=== PATIENT | male | born 1940 | race Caucasian/White ===

== ENCOUNTER 2020-02-18 11:50 | Inpatient (IN) | payer MEDICARE, OTHER, SELFPAY ==
[2014-10-09 16:25] VITALS: BMI 19.2
[2020-02-18 12:06] VITALS: PULSE 65; RESP 16; O2SAT 92; BMI 20.2
[2020-02-18 12:38] VITALS: BP 124/78; PULSE 65; RESP 16; TEMP 36.7; O2SAT 92
[2020-02-18 12:53] VITALS: BMI 20.2
--- NOTE | 2020-02-18 13:20 | HP.PCM_ITS ---
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 The patient is a 79 year old Male with below past medical history with followin02/14/2020 Fall, right sided weakness, speech changes. CTA showed left pericallosal artery stenosis/occlusion. tPA given. 02/15/2020 Admit to [facility] for post tPA monitoring. Post tPA protocol. PRN labetalol/hydralazine, maintain systolic blood pressure < 180. Order EKG, Echo, cardiac enzymes. Start Atorvastatin 80MG daily, hold aspirin for now. Sequential compression devices for DVT prophylaxis. MRI brain when able, TTE with agitated saline. 02/15/2020 Echo EF 61%. No Patent Foramen Ovale. 30 day satellite project site monitor on discharge to evaluate cardioembolic source. August 2018 Echo EF 45%. Hold Memantine 10MG twice daily for now. 02/15/2020 MRI brain showed acute left ALEX stroke, likely cardioembolic. 02/17/2020 Admit to TCU with debility, here for rehabilitation, strengthening, prior to discharge home with . Past Medical History Past Medical History (Chronic Problems): Chronic Problems Cardiomyopathy (Chronic) Atrial flutter (Chronic) Prostate cancer (Chronic) Alzheimer disease (Chronic) Asthma (Chronic) Glaucoma (Chronic) Squamous cell carcinoma skin of arm (Chronic) Bilateral inguinal hernia (Chronic) generalized arthritis (Chronic) Acid reflux (Chronic) History of malignant neoplasm of prostate (Chronic) Hyperlipidemia (Chronic) Dementia (Chronic) Atrial fibrillation (Chronic) Allergies amoxicillin [Amoxicillin] Adverse Reaction (Verified 04/24/14 10:40) Rash tetracycline [Tetracycline] Adverse Reaction (Verified 04/24/14 10:40) Rash Home Medications: Ambulatory Orders Medication Instructions Recorded Aspirin [Aspirin, Baby] 81 mg PO DAILY@0800 04/24/14 Bimatoprost [Lumigan Opthalmic] 1 drop EACH EYE QHS 04/24/14 Memantine Hydrochloride [Namenda] 10 mg PO DAILY 04/24/14 Multivitamins,Therapeutic 1 tablet PO DAILY 04/24/14 [Multivitamin] Ondansetron [Zofran Odt] 4 mg PO Q8H PRN PRN #10 tablet 04/24/14 Rivastigmine 9.5mg Patch [Exelon 1 patch TD Q24H 04/24/14 9.5MG/24HR PATCH] Atorvastatin Calcium [Lipitor] 20 mg PO QHS 02/18/20 Docusate Sodium [Docu Liquid] 100 mg PO BID 02/18/20 Enoxaparin Sodium [Lovenox] 40 mg SQ DAILY 02/18/20 Epinephrine [Epipen] 0.3 mg IM X1 02/18/20 Propranolol HCl [Inderal (Beta 20 mg PO BID 02/18/20 [place])] Propylene Glycol [Systane Complete] 1.5 ml OP DAILY 02/18/20 Surgical History: cataract - OS., herniorrhaphy - Bilateral inguinal., - - Mitral valve repair, Brachytherapy, right hand reconstruction. Psychiatric History: No pertinent psych hx Lives: Spouse/ Significant Other - . Smoking Status: Never smoker Tobacco Use: Non-smoker Alcohol: None Drugs: None - *Family History Paternal History Items: Cancer - Mulitple Myleoma. Maternal History Items: No pertinent history Review of Systems Constitutional: Denies: Chills, Fever, Weight Change HEENT: Denies: Head Aches, Sinus Congestion, Sinus Drainage Cardiovascular: Denies: Chest Pain, Palpitations Respiratory: Denies: Cough, Shortness of breath at rest, Sputum production Gastrointestinal: Denies: Abdominal Pain, Nausea, Vomiting Genitourinary: Denies: Dysuria Musculoskeletal: Denies: Joint Pain, Joint Tenderness Skin: Denies: Rash, Wounds Neurological: Denies: Numbness, Tingling, Focal weakness Psychiatric: Denies: Anxiety, Depression, Homicidal Ideations, Suicidal Ideations Hematologic/ Lymphatic: Denies: Easy Bruising, Easy Bleeding VTE Information - Inpt Only VTE Present on Admission: No VTE Mechan Device Prophylaxis: Knee High BLESSING Hose VTE Pharm Prophylaxis ordered?: Yes Patient Problems: Active and Suspected Problems Debility (Acute) Stroke (Acute) Right hemiparesis (Acute) Expressive aphasia (Acute) - Physical Exam Vitals/I&O's: Vital Signs Temp Pulse Resp BP Pulse Ox 98.1 F 65 16 124/78 H 92 02/18/20 12:38 02/18/20 12:38 02/18/20 12:38 02/18/20 12:38 02/18/20 12:38 Oxygen Delivery Method Room Air Body Mass Index (BMI) 19.2 Finger Stick Blood Glucose 101 General: Alert, Oriented x3, Cooperative HEENT: Atraumatic, PERRLA, EOMI, Normocephalic Neck: Supple, No JVD, Negative Carotid Bruits Lungs: Clear to auscultation, Normal air movement Cardiovascular: Regular rate, No murmurs Abdomen: Bowel Sounds Present, Soft, Non Tender Extremities: No edema, Capillary Refill Less than 3 Seconds Skin: No rashes, No breakdown Musculoskeletal: No Tenderness to Palpation of Joints or Extremities Neurological: Cranial nerves II-XII grossly intact, - - Right hemiparesis. Psych/Mental Status: Normal Affect, Appropriate Current Medications Aspirin (Aspirin, Baby) 81 mg PO DAILY@0800 [facility] Atorvastatin Calcium (Lipitor) 20 mg PO QHS MEGHA Docusate Sodium (Colace Syrup) 100 mg PO BID MEGHA Enoxaparin Sodium (Lovenox) 40 mg SC DAILY MEGHA Epinephrine HCl (Symjepi) 0.3 mg IM X1 PRN PRN Reason: Allergic reaction Latanoprost (Xalatan Opthalmic) 1 drop EACH EYE QHS [facility] Memantine (Namenda) 10 mg PO DAILY MEGHA Multivitamins/Minerals (Multivitamin With Minerals (Bkc)) 1 tablet PO DAILYCM [facility] Propranolol HCl (Inderal) 20 mg PO BID MEGHA Tuberculin PPD (Tubersol, Aplisol, Ppd) 5 tu ID X1 ONE Stop: 02/19/20 10:01 Tuberculin PPD (Tubersol, Aplisol, Ppd) 5 tu ID X1 ONE Stop: 02/26/20 10:01 Assessment/Plan All Active Problems Debility (Acute) Stroke (Acute) Right hemiparesis (Acute) Expressive aphasia (Acute) 79 year old male with below past medical history hospitalized for left ALEX stroke, status post tPA, admitted to TCU with debility, here for rehabilitation, strengthening, prior to discharge home with . * Debility - PT/OT. * Cognition/Expressive aphasia - ST. * Pain - Tylenol 1000MG Q6H PRN pain (1-10). * Bowel - Miralax 17GM daily, Senna/colace 1 tablet BID, Dulcolax 10MG daily PRN. * Adult immunization - Administer Prevnar 13, Pneumovax 23, Fluzone as appropriate. * DVT prophylaxis - Lovenox 40MG SC daily. * Stroke - Aspirin 81MG daily, order 30 day satellite project site monitor to evaluate cardioembolic stroke. * Hyperlipidemia - Atorvastatin 20MG QHS. * Allergic Reaction - Epinephrine 0.3MG IM x 1 PRN allergy. * Glaucoma - Latanoprost 0.005% 1GTT OU QHS. * Alzheimer Disease - Memantine 10MG daily. * Nutrition - MVI daily. * Dry eye - Artificial Tears 1GTT OU Q1H PRN. * Hypertension - Propranolol 20MG BID.
--- NOTE | 2020-02-18 15:23 | NURSING ---
Spoke with Meghan in Cardiovascular, she stated that no one was available to apply the manager monitoring and that it will be done on Friday.
--- NOTE | 2020-02-18 16:45 | CASEMGMT ---
Social Work Completed initial assessment with . Pt unable to respond to SW. reports pt has had Dementia for 10 years and she has been assisting home. States he cannot remember past about 30 seconds. Prior to admission, pt was physically capable. They have a 2 story home with 4 steps to enter and the walk-in shower is on the 2nd floor with his bedroom. Pt could complete those steps prior. is realistic that pt may not be able to return home, although that is the goal. stated she is the HCPOA. Emailed a list of [facility] SNFs for pt. Explained Medicare benefit. Confirmed code status as DNR-CCA. Scheduled care plan meeting. Assisted with speaking to pt via phone. Pt did not respond. Will continue to follow. REJI JaureguiW
[2020-02-18] MEDS: Senna/Docusate Sodium 1 Tablet PO (17:59)
[2020-02-18] MEDS: Propranolol 10 MG Tablet 20 MG PO (17:59)
[2020-02-18] MEDS: Menthol/Lanolin/Calamine/Znox 113 GM Tube 1 APPLIC TOPICAL (18:51)
[2020-02-18] MEDS: Atorvastatin Calcium 20 MG Tablet PO (22:08)
[2020-02-18] MEDS: Latanoprost 0.005% 1 Bottle 1 DRP EACH EYE (22:08)
[2020-02-19 07:22] LABS: Absolute Lymphocyte Count 2.03 X10^3/uL (0.83-4.51); Absolute Neutrophil Count 3.9 X10^3/uL (2.0-7.7); Basophil# 0.06 X10^3/uL; Basophil% 0.8 % (0-1); Eosinophil# 0.68 X10^3/uL; Eosinophils% 8.8 % (0-5); Hematocrit 45.3 % (40-54); Lymphocyte # 2.03 X10^3/ul (4.0); Lymphocyte % 26.4 % (19-41); Mean Corp Hgb Conc 33.1 g/dL (32-36); Mean Corpuscular Hgb 29.3 pg (27.0-32.0); Mean Corpuscular Volume 88.5 fL (80-94); Mean Platelet Vol. 10.9 fl (6.2-12.0); Monocyte# 0.99 X10^3/uL; Monocyte% 12.9 % (0-10); NRBC Flagged by Analyzer 0 % (0-5); Neutrophil % 50.6 % (47-70); Platelet Count 198 K/mm3 (150-450); RBC Distribution Width SD 45.4 fl (35.1-43.9); Red Blood Count 5.12 M/mm3 (4.6-6.2); White Blood Count 7.7 K/mm3 (4.4-11.0)
[2020-02-19] MEDS: Enoxaparin 40 MG/0.4 ML Syringe SC (07:23)
[2020-02-19] MEDS: Memantine Hydrochloride 10 MG Tablet PO (07:23)
[2020-02-19] MEDS: Senna/Docusate Sodium 1 Tablet PO ×2 (07:23→18:03)
[2020-02-19] MEDS: Propranolol 10 MG Tablet 20 MG PO ×2 (07:23→18:03)
[2020-02-19] MEDS: Polyethylene Glycol 3350 17 GM PACKET PO (07:23)
[2020-02-19] MEDS: Menthol/Lanolin/Calamine/Znox 113 GM Tube 1 APPLIC TOPICAL ×2 (07:24→18:02)
[2020-02-19 07:43] LABS: Anion Gap 4 (5-15); BUN 24 mg/dL (7-18); BUN/Creat Ratio 23.1 RATIO (10-20); Calcium,Total 9.1 mg/dL (8.5-10.1); Chloride 105 mmol/L (98-107); Creatinine, Serum 1.04 mg/dL (0.70-1.30); EST Glomerular Filtration Rate 73 mL/min (>60); Est Glom Filt Rate - Afr Amer 89 mL/min (>60); Estimated Creatinine Clearance 52.19 ml/min; Glucose 96 mg/dL (74-106); Potassium 4.4 mmol/L (3.5-5.1); Sodium Level 140 mmol/L (136-145)
[2020-02-19] MEDS: Multivitamins,Ther W-Minerals Tablet 1 TABLET PO (08:10)
[2020-02-19] MEDS: Aspirin 81 MG TAB.CHEW PO (08:10)
[2020-02-19] MEDS: Tuberculin,Purif.prot.deriv. 50 TU/ML Vial 5 ML ID (09:51)
[2020-02-19 14:12] VITALS: BP 111/66; PULSE 66; RESP 17; TEMP 36.7; O2SAT 94
[2020-02-19] MEDS: Latanoprost 0.005% 1 Bottle 1 DRP EACH EYE (20:50)
[2020-02-19] MEDS: Atorvastatin Calcium 20 MG Tablet PO (20:50)
[2020-02-20] MEDS: Polyethylene Glycol 3350 17 GM PACKET PO (06:58)
[2020-02-20] MEDS: Enoxaparin 40 MG/0.4 ML Syringe SC (07:01)
[2020-02-20] MEDS: Menthol/Lanolin/Calamine/Znox 113 GM Tube 1 APPLIC TOPICAL ×2 (07:01→17:55)
[2020-02-20] MEDS: Senna/Docusate Sodium 1 Tablet PO ×2 (07:02→17:56)
[2020-02-20] MEDS: Memantine Hydrochloride 10 MG Tablet PO (07:02)
--- NOTE | 2020-02-20 07:02 | NURSING ---
hold propranolol d/t low bp of 96/56. hr at 76. rn aware.
[2020-02-20] MEDS: Multivitamins,Ther W-Minerals Tablet 1 TABLET PO (08:20)
[2020-02-20] MEDS: Aspirin 81 MG TAB.CHEW PO (08:20)
[2020-02-20 10:50] VITALS: PULSE 74; RESP 18; O2SAT 98
[2020-02-20 14:14] VITALS: BP 90/66; PULSE 73; RESP 18; TEMP 36.8; O2SAT 98
[2020-02-20] MEDS: Propranolol 10 MG Tablet 20 MG PO (17:58)
[2020-02-20 18:07] VITALS: BP 106/73; PULSE 84
[2020-02-20] MEDS: Latanoprost 0.005% 1 Bottle 1 DRP EACH EYE (20:14)
[2020-02-20] MEDS: Atorvastatin Calcium 20 MG Tablet PO (20:14)
[2020-02-21] MEDS: Polyethylene Glycol 3350 17 GM PACKET PO (06:21)
[2020-02-21] MEDS: Senna/Docusate Sodium 1 Tablet PO ×2 (06:22→17:20)
[2020-02-21] MEDS: Memantine Hydrochloride 10 MG Tablet PO (06:22)
[2020-02-21] MEDS: Enoxaparin 40 MG/0.4 ML Syringe SC (06:22)
[2020-02-21] MEDS: Menthol/Lanolin/Calamine/Znox 113 GM Tube 1 APPLIC TOPICAL ×2 (06:22→17:21)
[2020-02-21] MEDS: Propranolol 10 MG Tablet 20 MG PO ×2 (06:25→17:20)
[2020-02-21] MEDS: Multivitamins,Ther W-Minerals Tablet 1 TABLET PO (07:51)
[2020-02-21] MEDS: Aspirin 81 MG TAB.CHEW PO (07:51)
--- NOTE | 2020-02-21 11:45 | PCM.PN.RX ---
<Amanuel Garcia - Last Filed: 02/21/20 11:45> Progress Note - Pharmacy Subjective: [] TCU Admission Objective: Allergies amoxicillin [Amoxicillin] Adverse Reaction (Verified 04/24/14 10:40) Rash tetracycline [Tetracycline] Adverse Reaction (Verified 04/24/14 10:40) Rash Current Medications Generic Name Dose Route Start Last Admin Trade Name Estrella PRN Reason Stop Dose Admin Acetaminophen 1,000 mg 02/18/20 14:02 Tylenol PO Q6H PRN Pain Score 1-10/10 Aspirin 81 mg 02/19/20 08:00 02/21/20 07:51 Aspirin, Baby PO 81 mg DAILY@0800 MEGHA Administration Atorvastatin Calcium 20 mg 02/18/20 22:00 02/20/20 20:14 Lipitor PO 20 mg QHS EMGHA Administration Bisacodyl 10 mg 02/18/20 14:03 Dulcolax PO DAILY PRN Constipation Calamine/Phenol 1 applic 02/18/20 18:00 02/21/20 06:22 Calmoseptine Ointment TOPICAL 1 applicatio BID MEGHA Administration Protocol Enoxaparin Sodium 40 mg 02/19/20 06:00 02/21/20 06:22 Lovenox SC 40 mg DAILY MEGHA Administration Epinephrine HCl 0.3 mg 02/18/20 12:12 Symjepi IM X1 PRN Allergic reaction Latanoprost 1 drop 02/18/20 22:00 02/20/20 20:14 Xalatan Opthalmic EACH EYE 1 drop QHS [facility] Administration Memantine 10 mg 02/19/20 06:00 02/21/20 06:22 Namenda PO 10 mg DAILY MEGHA Administration Multivitamins/Minerals 1 tablet 02/19/20 08:00 02/21/20 07:51 Multivitamin With Minerals (Bkc) PO 1 tablet DAILYCM MEG[facility] Administration Polyethylene Glycol 17 gm 02/19/20 06:00 02/21/20 06:21 Miralax PO 17 gm DAILY MEGHA Administration Propranolol HCl 20 mg 02/18/20 18:00 02/21/20 06:25 Inderal PO 20 mg BID MEGHA Administration Senna/Docusate Sodium 1 tablet 02/18/20 18:00 02/21/20 06:22 Senokot-S, Liliane-Colace PO 1 tablet BID MEGHA Administration Tuberculin PPD 5 tu 02/26/20 10:00 Tubersol, Aplisol, Ppd ID 02/26/20 10:01 X1 ONE Problem List Debility (Acute) Stroke (Acute) Right hemiparesis (Acute) Expressive aphasia (Acute) Cardiomyopathy (Chronic) Atrial flutter (Chronic) Prostate cancer (Chronic) Alzheimer disease (Chronic) Asthma (Chronic) Glaucoma (Chronic) Squamous cell carcinoma skin of arm (Chronic) Bilateral inguinal hernia (Chronic) Vital Signs Temp Pulse Resp BP Pulse Ox 98.2 F 84 18 106/73 98 02/20/20 14:14 02/20/20 18:07 02/20/20 14:14 02/20/20 18:07 02/20/20 14:14 Oxygen Delivery Method Room Air Weight: 64.07 kg Body Mass Index (BMI) 20.2 Finger Stick Blood Glucose 101 Sodium 140 mmol/L (136-145) 02/19/20 07:11 Potassium 4.4 mmol/L (3.5-5.1) 02/19/20 07:11 Chloride 105 mmol/L (98-107) 02/19/20 07:11 Carbon Dioxide 31.0 mmol/L (21.0-32.0) 02/19/20 07:11 Anion Gap 4 (5-15) L 02/19/20 07:11 BUN 24 mg/dL (7-18) H 02/19/20 07:11 Creatinine 1.04 mg/dL (0.70-1.30) 02/19/20 07:11 Est GFR (MDRD) Af Amer 89 mL/min (>60) 02/19/20 07:11 Est GFR (MDRD) Non-Af 73 mL/min (>60) 02/19/20 07:11 BUN/Creatinine Ratio 23.1 RATIO (10-20) H 02/19/20 07:11 Glucose 96 mg/dL (74-106) 02/19/20 07:11 rehabilitation, strengthening, prior to discharge home with . Debility - PT/OT. Cognition/Expressive aphasia - ST. Pain - Tylenol 1000MG Q6H PRN pain (1-10). Bowel - Miralax 17GM daily, Senna/colace 1 tablet BID, Dulcolax 10MG daily PRN. Adult immunization - Administer Prevnar 13, Pneumovax 23, Fluzone as appropriate. DVT prophylaxis - Lovenox 40MG SC daily. Stroke - Aspirin 81MG daily, order 30 day equipment monitor phototypesetting to evaluate cardioembolic stroke. Hyperlipidemia - Atorvastatin 20MG QHS. Allergic Reaction - Epinephrine 0.3MG IM x 1 PRN allergy. Glaucoma - Latanoprost 0.005% 1GTT OU QHS. Alzheimer Disease - Memantine 10MG daily. Nutrition - MVI daily. Dry eye - Artificial Tears 1GTT OU Q1H PRN. Hypertension - Propranolol 20MG BID. Assessment/Plan: 1) Pain: Acetaminophen 1000mg po q6h prn for pain 1-08/05. Please continue to monitor prn usage and for signs/symptoms of increased/decreased pain. 2) Hyperlipidemia: Atorvastatin 20mg po qhs. I could not find a recent LFT or Lipid panel in the pt's chart. Please consider a yearly LFT and Lipid Panel while the pt is on a statin. Thanks. 3) Hypertension: Propranolol 20mg po bid. Pt's pulse rate is within normal limits, the last rhythm was irregular. Please continue to monitor. Pt's average blood pressure is 107.75/70.75. Please continue to monitor. 4) DVT Prophylaxis: Enoxaparin 40mg subq daily. Pt's SrCr is 1.04, and CrCl is 52.19. Please continue to monitor. Pt's Plts are 198. Please continue to monitor. 5) Glaucoma: Latanoprost 1 drop into each eye every night at bedtime. Please continue to monitor for signs/symptoms of Glaucoma. Please ensure that proper technique is being used and if more than one eye drop is being used, they are no closer than 5 minutes together. 6) Alzheimers: Memantine 10mg po bid. Please continue to monitor for signs/symptoms of Alzheimers. Psychotropic Medications: none Unnecessary Medications: none Bowel Regimen: Bisacodyl 10mg po daily prn for constipation, Miralax 17mg po daily, Senna/Docusate 1 tablet po bid. Please continue to monitor prn usage and for signs/symptoms of constipation/diarrhea. Date of Note:: 02/21/20 - Provider Comments Provider responsibility: Provider responsible to enter orders to implement recommendations <Harpal Fox Chi - Last Filed: 02/21/20 17:05> Progress Note - Pharmacy Subjective: [] Objective: Allergies amoxicillin [Amoxicillin] Adverse Reaction (Verified 04/24/14 10:40) Rash tetracycline [Tetracycline] Adverse Reaction (Verified 04/24/14 10:40) Rash Current Medications Generic Name Dose Route Start Last Admin Trade Name Estrella PRN Reason Stop Dose Admin Acetaminophen 1,000 mg 02/18/20 14:02 Tylenol PO Q6H PRN Pain Score 1-10/10 Aspirin 81 mg 02/19/20 08:00 02/21/20 07:51 Aspirin, Baby PO 81 mg DAILY@0800 MEGHA Administration Atorvastatin Calcium 20 mg 02/18/20 22:00 02/20/20 20:14 Lipitor PO 20 mg QHS MEGHA Administration Bisacodyl 10 mg 02/18/20 14:03 Dulcolax PO DAILY PRN Constipation Calamine/Phenol 1 applic 02/18/20 18:00 02/21/20 06:22 Calmoseptine Ointment TOPICAL 1 applicatio BID MEGHA Administration Protocol Enoxaparin Sodium 40 mg 02/19/20 06:00 02/21/20 06:22 Lovenox SC 40 mg DAILY MEGHA Administration Epinephrine HCl 0.3 mg 02/18/20 12:12 Symjepi IM X1 PRN Allergic reaction Latanoprost 1 drop 02/18/20 22:00 02/20/20 20:14 Xalatan Opthalmic EACH EYE 1 drop QHS [facility] Administration Memantine 10 mg 02/19/20 06:00 02/21/20 06:22 Namenda PO 10 mg DAILY MEGHA Administration Multivitamins/Minerals 1 tablet 02/19/20 08:00 02/21/20 07:51 Multivitamin With Minerals (Bkc) PO 1 tablet DAILYCM [facility] Administration Polyethylene Glycol 17 gm 02/19/20 06:00 02/21/20 06:21 Miralax PO 17 gm DAILY MEGHA Administration Propranolol HCl 20 mg 02/18/20 18:00 02/21/20 06:25 Inderal PO 20 mg BID MEGHA Administration Senna/Docusate Sodium 1 tablet 02/18/20 18:00 02/21/20 06:22 Senokot-S, Liliane-Colace PO 1 tablet BID MEGHA Administration Tuberculin PPD 5 tu 02/26/20 10:00 Tubersol, Aplisol, Ppd ID 02/26/20 10:01 X1 ONE Problem List Debility (Acute) Stroke (Acute) Right hemiparesis (Acute) Expressive aphasia (Acute) Cardiomyopathy (Chronic) Atrial flutter (Chronic) Prostate cancer (Chronic) Alzheimer disease (Chronic) Asthma (Chronic) Glaucoma (Chronic) Squamous cell carcinoma skin of arm (Chronic) Bilateral inguinal hernia (Chronic) Vital Signs Temp Pulse Resp BP Pulse Ox 98.6 F 71 16 137/74 H 96 02/21/20 15:16 02/21/20 15:16 02/21/20 15:16 02/21/20 15:16 02/21/20 15:16 Oxygen Delivery Method Room Air Weight: 64.07 kg Body Mass Index (BMI) 20.2 Finger Stick Blood Glucose 101 Sodium 140 mmol/L (136-145) 02/19/20 07:11 Potassium 4.4 mmol/L (3.5-5.1) 02/19/20 07:11 Chloride 105 mmol/L (98-107) 02/19/20 07:11 Carbon Dioxide 31.0 mmol/L (21.0-32.0) 02/19/20 07:11 Anion Gap 4 (5-15) L 02/19/20 07:11 BUN 24 mg/dL (7-18) H 02/19/20 07:11 Creatinine 1.04 mg/dL (0.70-1.30) 02/19/20 07:11 Est GFR (MDRD) Af Amer 89 mL/min (>60) 02/19/20 07:11 Est GFR (MDRD) Non-Af 73 mL/min (>60) 02/19/20 07:11 BUN/Creatinine Ratio 23.1 RATIO (10-20) H 02/19/20 07:11 Glucose 96 mg/dL (74-106) 02/19/20 07:11 Assessment/Plan: Psychotropic Medications: Unnecessary Medications: Bowel Regimen: - Provider Comments Provider responsibility: Provider responsible to enter orders to implement recommendations Provider Comments to Recommendations by Pharmacy: Agree
--- NOTE | 2020-02-21 13:59 | NURSING ---
Pt has order for surveillance system monitor to be placed, cardiovascular was called to f/u with time of placement, no answer at this time.
[2020-02-21 15:16] VITALS: BP 137/74; PULSE 71; RESP 16; TEMP 37; O2SAT 96
[2020-02-21 22:20] VITALS: PULSE 68; RESP 16; O2SAT 97
[2020-02-21] MEDS: Atorvastatin Calcium 20 MG Tablet PO (22:22)
[2020-02-21] MEDS: Latanoprost 0.005% 1 Bottle 1 DRP EACH EYE (22:22)
[2020-02-22] MEDS: Menthol/Lanolin/Calamine/Znox 113 GM Tube 1 APPLIC TOPICAL ×2 (06:08→17:59)
[2020-02-22] MEDS: Enoxaparin 40 MG/0.4 ML Syringe SC (06:09)
[2020-02-22] MEDS: Senna/Docusate Sodium 1 Tablet PO ×2 (06:10→17:59)
[2020-02-22] MEDS: Propranolol 10 MG Tablet 20 MG PO ×2 (06:10→22:06)
[2020-02-22] MEDS: Polyethylene Glycol 3350 17 GM PACKET PO (06:16)
[2020-02-22] MEDS: Memantine Hydrochloride 10 MG Tablet PO (07:38)
[2020-02-22] MEDS: Aspirin 81 MG TAB.CHEW PO (08:20)
[2020-02-22] MEDS: Multivitamins,Ther W-Minerals Tablet 1 TABLET PO (08:20)
[2020-02-22 10:00] VITALS: PULSE 61; RESP 18; O2SAT 98
--- NOTE | 2020-02-22 10:20 | NURSING ---
VERIFIED HEART MONITOR PLACEMENT AND MONITORING AND BATTERY CHARGED.
--- NOTE | 2020-02-22 14:23 | NS ---
Resident's Brandi requested to speak to dietitian--called today. Brandi reports that pt likes desserts such as pie, cookies, cake and ice cream but, used to refuse ensure supplements. Will add vanilla magic cup & ensure pudding with meals for tolerance and adjust according to acceptance. is concerned about resident's wt as he has always been thin and doesn't eat much. Brandi said her likes to have an evening snack and would enjoy ice cream--will have magic cups in TCU freezer available per 's request. Resident food preferences documented and shared with dietary---likes pasta, chicken, eggs, pork and beef but, dislikes seafood. Encouraged Brandi to call RD as needed with any dietary/nutrition concerns.
[2020-02-22 15:33] VITALS: BP 105/74; PULSE 74; RESP 14; TEMP 36.5; O2SAT 95
[2020-02-22] MEDS: Propranolol 10 MG Tablet 30 MG PO (17:59)
[2020-02-22] MEDS: Atorvastatin Calcium 20 MG Tablet PO (22:03)
[2020-02-22] MEDS: Latanoprost 0.005% 1 Bottle 1 DRP EACH EYE (22:04)
[2020-02-23] MEDS: Enoxaparin 40 MG/0.4 ML Syringe SC (06:58)
[2020-02-23] MEDS: Polyethylene Glycol 3350 17 GM PACKET PO (06:58)
[2020-02-23] MEDS: Menthol/Lanolin/Calamine/Znox 113 GM Tube 1 APPLIC TOPICAL ×2 (06:59→16:44)
[2020-02-23] MEDS: Propranolol 10 MG Tablet 20 MG PO ×3 (06:59→21:01)
[2020-02-23] MEDS: Senna/Docusate Sodium 1 Tablet PO ×2 (07:00→16:40)
[2020-02-23] MEDS: Memantine Hydrochloride 10 MG Tablet PO (07:03)
[2020-02-23] MEDS: Multivitamins,Ther W-Minerals Tablet 1 TABLET PO (08:52)
[2020-02-23] MEDS: Aspirin 81 MG TAB.CHEW PO (08:52)
--- NOTE | 2020-02-23 09:41 | NURSING ---
pt pulled heart monitor off. this nurse replace strip and battery. heart is being monitor. rn aware.
--- NOTE | 2020-02-23 11:35 | CASEMGMT ---
Social Work IDT met with patient and via conference call for care plan meeting. Discussed patient's progress in therapy. Pt is min assist for bed mobility, CGA for transfers with FWW, SBA for ambulating 60-80 ft with FWW. Pt does better when given functional activities vs seated activities as he struggles with comprehension. Pt received a sponge bath d/t heart monitor. Pt is mod assist for grooming with max cues as her perseverated on one area and needed instruction to move to the next task. Pt is mod assist for bathing, min for UE dressing, max for LE dressing - could thread left pant leg. Pt could put on socks while in bed with tactile cues, toilet transfers mod assist with grab bar and FWW, toileting tasks is mod assist. Pt has severe expressive and receptive aphasia. Attempting automatic speech tasks, requires max cues and sometimes still unable to follow directions. Pt A&O to name and only. Pt on regular/thin diet, supervised with meals, trialing weighted silverware to assist with hand tremor. Pt does better with finger foods. Pt receiving magic cup, ensure pudding, ensure Enlive and has 50-100% intake. Pt is out of isolation 03/03, currently has 30 day heart monitor. Pt receiving 1:1 visits from activities, enjoys watching sports on TV. Pt able to assist at home, but recommending making home first floor set up as pt has 4 steps to enter and 15 to bedroom. Recommending aide assistance with bathing and dressing at this time. Explained Medicare benefit. Will continue to follow. REJI Jauregui EVENT MGR
[2020-02-23 13:58] VITALS: BP 106/65; PULSE 71
[2020-02-23 15:09] VITALS: BP 106/55; PULSE 71; RESP 14; TEMP 36.9; O2SAT 96
[2020-02-23] MEDS: Atorvastatin Calcium 20 MG Tablet PO (21:01)
[2020-02-23] MEDS: Latanoprost 0.005% 1 Bottle 1 DRP EACH EYE (21:02)
[2020-02-23 21:05] VITALS: PULSE 64; RESP 16; O2SAT 96
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
[2020-02-24] MEDS: Enoxaparin 40 MG/0.4 ML Syringe SC (06:03)
[2020-02-24] MEDS: Memantine Hydrochloride 10 MG Tablet PO (06:03)
[2020-02-24] MEDS: Propranolol 10 MG Tablet 20 MG PO ×3 (06:03→21:58)
[2020-02-24] MEDS: Polyethylene Glycol 3350 17 GM PACKET PO (06:03)
[2020-02-24] MEDS: Senna/Docusate Sodium 1 Tablet PO ×2 (06:03→17:12)
[2020-02-24] MEDS: Menthol/Lanolin/Calamine/Znox 113 GM Tube 1 APPLIC TOPICAL ×2 (06:04→17:13)
--- NOTE | 2020-02-24 06:13 | PCA ---
offered pt pm snack but pt refused.Tried to shave pt with am care but the razor to dull and it was upsetting him
[2020-02-24] MEDS: Aspirin 81 MG TAB.CHEW PO (08:32)
[2020-02-24] MEDS: Multivitamins,Ther W-Minerals Tablet 1 TABLET PO (08:32)
[2020-02-24 09:18] VITALS: PULSE 58; RESP 18; O2SAT 95
--- NOTE | 2020-02-24 12:33 | CASEMGMT ---
Social Work Followed up with on questions from 02/22 care plan meeting. Explained the processes TCU has in place to improve upon communication to and between and patient. understands new goals and looking forward to seeing them executed. Will continue to follow. Martha Pina, CARNIVAL WORKER ELECTRONIC SCANNER OPERATOR
[2020-02-24 14:44] VITALS: BP 104/63; PULSE 72; RESP 16; TEMP 36.5; O2SAT 96
[2020-02-24] MEDS: Atorvastatin Calcium 20 MG Tablet PO (21:58)
[2020-02-24] MEDS: Latanoprost 0.005% 1 Bottle 1 DRP EACH EYE (21:58)
[2020-02-25] MEDS: Polyethylene Glycol 3350 17 GM PACKET PO (06:12)
[2020-02-25] MEDS: Senna/Docusate Sodium 1 Tablet PO ×2 (06:12→17:35)
[2020-02-25] MEDS: Memantine Hydrochloride 10 MG Tablet PO (06:12)
[2020-02-25] MEDS: Enoxaparin 40 MG/0.4 ML Syringe SC (06:12)
[2020-02-25] MEDS: Propranolol 10 MG Tablet 20 MG PO ×3 (06:12→23:11)
[2020-02-25] MEDS: Menthol/Lanolin/Calamine/Znox 113 GM Tube 1 APPLIC TOPICAL ×2 (06:19→17:36)
[2020-02-25] MEDS: Aspirin 81 MG TAB.CHEW PO (09:02)
[2020-02-25] MEDS: Multivitamins,Ther W-Minerals Tablet 1 TABLET PO (09:02)
--- NOTE | 2020-02-25 13:29 | CASEMGMT ---
Social Work Facilitated phone call between and pt. appreciative. Martha Pina, MATERIALS ASSISTANT MOTOR COACH TOUR OPERATOR
[2020-02-25 14:57] VITALS: BP 118/72; PULSE 74; RESP 15; TEMP 37.3; O2SAT 97
--- NOTE | 2020-02-25 17:48 | NURSING ---
Spoke with pt's spouse, updated phone number for manager monitoring per her request. *
[2020-02-25] MEDS: Latanoprost 0.005% 1 Bottle 1 DRP EACH EYE (23:12)
[2020-02-25] MEDS: Atorvastatin Calcium 20 MG Tablet PO (23:12)
[2020-02-26] MEDS: Memantine Hydrochloride 10 MG Tablet PO (05:48)
[2020-02-26] MEDS: Senna/Docusate Sodium 1 Tablet PO ×2 (05:48→17:42)
[2020-02-26] MEDS: Enoxaparin 40 MG/0.4 ML Syringe SC (05:48)
[2020-02-26] MEDS: Polyethylene Glycol 3350 17 GM PACKET PO (05:48)
[2020-02-26] MEDS: Menthol/Lanolin/Calamine/Znox 113 GM Tube 1 APPLIC TOPICAL ×2 (05:49→17:42)
[2020-02-26] MEDS: Propranolol 10 MG Tablet 20 MG PO ×3 (05:53→21:56)
[2020-02-26 06:46] LABS: Absolute Lymphocyte Count 1.45 X10^3/uL (0.83-4.51); Basophil# 0.05 X10^3/uL; Basophil% 0.5 % (0-1); Eosinophil# 0.56 X10^3/uL; Hematocrit 44.8 % (40-54); Hemoglobin 13.9 g/dL (13.0-16.5); Lymphocyte # 1.45 X10^3/ul (4.0); Lymphocyte % 15.6 % (19-41); Mean Corpuscular Hgb 29.1 pg (27.0-32.0); Mean Corpuscular Volume 93.7 fL (80-94); Monocyte# 1.25 X10^3/uL; Monocyte% 13.4 % (0-10); NRBC Flagged by Analyzer 0 % (0-5); Neutrophil # 5.95 X10^3/uL (2.7-7.7); Neutrophil % 64.1 % (47-70); Platelet Count 217 K/mm3 (150-450); RBC Distribution Width CV 14.2 % (11.6-14.6); RBC Distribution Width SD 48.5 fl (35.1-43.9); Red Blood Count 4.78 M/mm3 (4.6-6.2); White Blood Count 9.3 K/mm3 (4.4-11.0)
[2020-02-26 07:10] LABS: Anion Gap 1 (5-15); BUN 28 mg/dL (7-18); BUN/Creat Ratio 29.2 RATIO (10-20); Calcium,Total 9.3 mg/dL (8.5-10.1); Chloride 112 mmol/L (98-107); Creatinine, Serum 0.96 mg/dL (0.70-1.30); EST Glomerular Filtration Rate 80 mL/min (>60); Est Glom Filt Rate - Afr Amer 97 mL/min (>60); Estimated Creatinine Clearance 56.54 ml/min; Glucose 105 mg/dL (74-106); Potassium 4.2 mmol/L (3.5-5.1); Sodium Level 146 mmol/L (136-145)
[2020-02-26] MEDS: Aspirin 81 MG TAB.CHEW PO (08:41)
[2020-02-26] MEDS: Multivitamins,Ther W-Minerals Tablet 1 TABLET PO (08:41)
[2020-02-26 10:00] VITALS: PULSE 62; RESP 18; O2SAT 94
[2020-02-26] MEDS: Tuberculin,Purif.prot.deriv. 50 TU/ML Vial 5 ML ID (10:55)
--- NOTE | 2020-02-26 15:14 | NURSING ---
was called to give update but no answer, voicemail was left asking her to return call
[2020-02-26 16:00] VITALS: BP 101/55; PULSE 66; RESP 16; TEMP 36.7; O2SAT 98
[2020-02-26] MEDS: Latanoprost 0.005% 1 Bottle 1 DRP EACH EYE (21:56)
[2020-02-26] MEDS: Atorvastatin Calcium 20 MG Tablet PO (21:56)
--- NOTE | 2020-02-26 23:15 | NURSING ---
Addendum entered by Doreen Johnson 02/27/20 04:32: Patient found to have monitor disconnected from strip. Replaced monitor. ABD binder in place. Original Note: Patient pulled monitor strip off. Replaced with last strip. RN aware.
[2020-02-27] MEDS: Propranolol 10 MG Tablet 20 MG PO ×3 (05:50→20:31)
[2020-02-27] MEDS: Polyethylene Glycol 3350 17 GM PACKET PO (05:50)
[2020-02-27] MEDS: Menthol/Lanolin/Calamine/Znox 113 GM Tube 1 APPLIC TOPICAL ×2 (05:50→17:17)
[2020-02-27] MEDS: Enoxaparin 40 MG/0.4 ML Syringe SC (05:50)
[2020-02-27] MEDS: Memantine Hydrochloride 10 MG Tablet PO (05:51)
[2020-02-27] MEDS: Senna/Docusate Sodium 1 Tablet PO ×2 (05:51→17:18)
[2020-02-27] MEDS: Multivitamins,Ther W-Minerals Tablet 1 TABLET PO (07:58)
[2020-02-27] MEDS: Aspirin 81 MG TAB.CHEW PO (07:58)
[2020-02-27 15:45] VITALS: BP 98/68; PULSE 74; RESP 16; TEMP 36.8; O2SAT 95
[2020-02-27] MEDS: Atorvastatin Calcium 20 MG Tablet PO (20:30)
[2020-02-27 20:31] VITALS: PULSE 77; O2SAT 97
[2020-02-27] MEDS: Latanoprost 0.005% 1 Bottle 1 DRP EACH EYE (20:31)
[2020-02-28] MEDS: Polyethylene Glycol 3350 17 GM PACKET PO (05:07)
[2020-02-28] MEDS: Propranolol 10 MG Tablet 20 MG PO ×3 (05:07→22:38)
[2020-02-28] MEDS: Senna/Docusate Sodium 1 Tablet PO ×2 (05:07→17:06)
[2020-02-28] MEDS: Menthol/Lanolin/Calamine/Znox 113 GM Tube 1 APPLIC TOPICAL ×2 (05:07→17:07)
[2020-02-28] MEDS: Memantine Hydrochloride 10 MG Tablet PO (05:07)
[2020-02-28] MEDS: Enoxaparin 40 MG/0.4 ML Syringe SC (05:12)
[2020-02-28 06:46] LABS: Anion Gap 3 (5-15); BUN 30 mg/dL (7-18); BUN/Creat Ratio 29.1 RATIO (10-20); Calcium,Total 8.9 mg/dL (8.5-10.1); Chloride 113 mmol/L (98-107); Creatinine, Serum 1.03 mg/dL (0.70-1.30); EST Glomerular Filtration Rate 74 mL/min (>60); Est Glom Filt Rate - Afr Amer 90 mL/min (>60); Glucose 105 mg/dL (74-106); Potassium 4.3 mmol/L (3.5-5.1); Sodium Level 147 mmol/L (136-145)
[2020-02-28] MEDS: Aspirin 81 MG TAB.CHEW PO (08:20)
[2020-02-28] MEDS: Multivitamins,Ther W-Minerals Tablet 1 TABLET PO (08:20)
[2020-02-28 10:00] VITALS: PULSE 70; RESP 18; O2SAT 97
--- NOTE | 2020-02-28 14:42 | OT ---
Phone conversation with called back to TCU therapy phone. Asking questions regarding if she should purchase item that is like a small ramp from [employer] to go over all of her thresholds. This OT reported that I have not used the product she was referring to but that we would keep her updated on equipment needs for home. We have trialed with patient both hand held assist and also use of FWW. If he goes home at [facility] then may not need threshold ramp. asking how weighted silverware were going with meals. I was unable to report on this area but advised her to ask nsg/aide staff and therapy will address in future sessions with patient. said she was planning on calling patients neurologist this date to see if he should be on 60ml vs 40 ml of his medication for tremors. asking if patient was on a toileting program and how toileting tasks were coming. I reported how his last few sessions in OT had gone with transfers and also clothing management/pericare. Advised her to speak with nsg regarding a toileting program and his levels of incontinence daily. with numerous questions on equipment and home modifications needed upon patient discharging home. This OT reported that it was too early to know exactly what would be needed but we would keep her informed. Said that if he does go home with home health services that they could provide him with a home evaluation which would give her the best information regarding items needed and placement of equipment.
[2020-02-28 16:00] VITALS: BP 120/69; PULSE 80; RESP 14; TEMP 36.6; O2SAT 92
[2020-02-28] MEDS: Atorvastatin Calcium 20 MG Tablet PO (22:45)
[2020-02-28] MEDS: Latanoprost 0.005% 1 Bottle 1 DRP EACH EYE (22:45)
[2020-02-29] MEDS: Propranolol 10 MG Tablet 20 MG PO ×3 (05:29→20:21)
[2020-02-29] MEDS: Enoxaparin 40 MG/0.4 ML Syringe SC (05:29)
[2020-02-29] MEDS: Senna/Docusate Sodium 1 Tablet PO ×2 (05:30→17:05)
[2020-02-29] MEDS: Memantine Hydrochloride 10 MG Tablet PO (05:30)
[2020-02-29] MEDS: Polyethylene Glycol 3350 17 GM PACKET PO (05:30)
[2020-02-29] MEDS: Menthol/Lanolin/Calamine/Znox 113 GM Tube 1 APPLIC TOPICAL ×2 (05:40→17:05)
[2020-02-29] MEDS: Aspirin 81 MG TAB.CHEW PO (08:02)
[2020-02-29] MEDS: Multivitamins,Ther W-Minerals Tablet 1 TABLET PO (08:02)
[2020-02-29 10:52] LABS: Mucous, Urine 0 SEEN /hpf (<or=2+); Squamous Epithelial Cells - UA 0 SEEN /hpf (0-5)
[2020-02-29 10:54] LABS: Color, Urine Yellow (Yellow); Glucose, Dipstick Normal (Normal); Ketone-Dipstick 5 mg/dl (Negative); Leukocyte Esterase-Dipstick 500 /ul (Negative); Nitrite-Dipstick Positive (Negative); Occult Blood-Urine 50 /ul (Negative); Protein-Dipstick 30 mg/dl (Negative); Urine Bilirubin Dipstick Negative (Negative); Urine Clarity Sl. Cloudy (Clear); Urine Urobilinogen Normal (Normal)
[2020-02-29 11:00] LABS: Bacteria 4+ /hpf (None Seen); Red Blood Cells-Urine 0-5 SEEN /hpf (0-5); White Blood Cells 50-100 SEEN /hpf (0-5)
--- NOTE | 2020-02-29 13:46 | NURSING ---
HEART MONITOR STRIPS CAME IN TO DAY. THIS NURSE PUT THEM IN PT BOX ON NIGHT STAND. RN AWARE.
--- NOTE | 2020-02-29 13:55 | NURSING ---
HEART MONITOR STRIP CHANGED AND MONITORING SUCCESSFULLY. RN AWARE.
[2020-02-29 14:14] VITALS: BP 132/76; PULSE 80; RESP 16; TEMP 36.6; O2SAT 98
[2020-02-29] MEDS: Ciprofloxacin 250 MG Tablet PO ×2 (14:42→17:05)
--- NOTE | 2020-02-29 15:42 | NURSING ---
called patient to up date her on her for today. many questions asked and answered. pt thanked this nurse for the up dates.
[2020-02-29] MEDS: Latanoprost 0.005% 1 Bottle 1 DRP EACH EYE (20:19)
[2020-02-29] MEDS: Atorvastatin Calcium 20 MG Tablet PO (20:24)
[2020-03-01] MEDS: Menthol/Lanolin/Calamine/Znox 113 GM Tube 1 APPLIC TOPICAL ×2 (05:20→17:12)
[2020-03-01] MEDS: Polyethylene Glycol 3350 17 GM PACKET PO (05:21)
[2020-03-01] MEDS: Enoxaparin 40 MG/0.4 ML Syringe SC (05:21)
[2020-03-01] MEDS: Senna/Docusate Sodium 1 Tablet PO ×2 (05:21→17:13)
[2020-03-01] MEDS: Ciprofloxacin 250 MG Tablet PO ×2 (05:22→17:11)
[2020-03-01] MEDS: Memantine Hydrochloride 10 MG Tablet PO (05:22)
[2020-03-01] MEDS: Aspirin 81 MG TAB.CHEW PO (08:36)
[2020-03-01] MEDS: Multivitamins,Ther W-Minerals Tablet 1 TABLET PO (08:37)
--- NOTE | 2020-03-01 09:39 | MDS.RN ---
Information for the mds was obtained from review of the clinical record, interview of resident, staff, and direct observation of resident's care.
[2020-03-01] MEDS: Propranolol 10 MG Tablet 20 MG PO ×2 (13:32→23:15)
--- NOTE | 2020-03-01 13:51 | OT ---
Spoke with on phone called back to therapy phone wanting updates from OT/PT/ST regarding his latest therapy progress. She reported that she is going to be speaking with the neurologist tomorrow and wanted to provide them with therapy information. Reviewed OT areas of self feeding, grooming, bathing, dressing, and toileting tasks with .
--- NOTE | 2020-03-01 14:14 | ST ---
Spoke with patients , Brandi to provide ST update including limited progress to date. shared that what TEST OPERATOR was describing was very similar to how patient was communicating prior to stroke. In agreeement that patient may be close to his baseline in the area of speech therapy. Will continue to update pt's as requested.
[2020-03-01 14:46] VITALS: BP 125/60; PULSE 74; RESP 16; TEMP 37.3; O2SAT 97
[2020-03-01 23:10] VITALS: PULSE 68; RESP 16; O2SAT 95
[2020-03-01] MEDS: Atorvastatin Calcium 20 MG Tablet PO (23:16)
[2020-03-01] MEDS: Latanoprost 0.005% 1 Bottle 1 DRP EACH EYE (23:17)
[2020-03-02] MEDS: Senna/Docusate Sodium 1 Tablet PO ×2 (05:24→17:03)
[2020-03-02] MEDS: Memantine Hydrochloride 10 MG Tablet PO (05:24)
[2020-03-02] MEDS: Ciprofloxacin 250 MG Tablet PO ×2 (05:24→17:03)
[2020-03-02] MEDS: Enoxaparin 40 MG/0.4 ML Syringe SC (05:24)
[2020-03-02] MEDS: Polyethylene Glycol 3350 17 GM PACKET PO (05:24)
[2020-03-02] MEDS: Menthol/Lanolin/Calamine/Znox 113 GM Tube 1 APPLIC TOPICAL ×2 (05:24→17:03)
[2020-03-02] MEDS: Propranolol 10 MG Tablet 20 MG PO ×3 (05:29→20:47)
[2020-03-02] MEDS: Aspirin 81 MG TAB.CHEW PO (08:36)
[2020-03-02] MEDS: Multivitamins,Ther W-Minerals Tablet 1 TABLET PO (08:36)
[2020-03-02 10:00] VITALS: PULSE 687; RESP 16; O2SAT 98
[2020-03-02 15:06] VITALS: BP 121/65; PULSE 68; RESP 17; TEMP 36.7; O2SAT 98
[2020-03-02] MEDS: Atorvastatin Calcium 20 MG Tablet PO (20:47)
[2020-03-02] MEDS: Latanoprost 0.005% 1 Bottle 1 DRP EACH EYE (20:51)
[2020-03-03] MEDS: Enoxaparin 40 MG/0.4 ML Syringe SC (05:44)
[2020-03-03] MEDS: Polyethylene Glycol 3350 17 GM PACKET PO (05:44)
[2020-03-03] MEDS: Ciprofloxacin 250 MG Tablet PO ×2 (05:44→17:33)
[2020-03-03] MEDS: Memantine Hydrochloride 10 MG Tablet PO (05:45)
[2020-03-03] MEDS: Propranolol 10 MG Tablet 20 MG PO ×3 (05:46→20:11)
[2020-03-03] MEDS: Senna/Docusate Sodium 1 Tablet PO ×2 (05:46→17:33)
[2020-03-03] MEDS: Menthol/Lanolin/Calamine/Znox 113 GM Tube 1 APPLIC TOPICAL ×2 (05:47→17:34)
[2020-03-03] MEDS: Aspirin 81 MG TAB.CHEW PO (08:53)
[2020-03-03] MEDS: Multivitamins,Ther W-Minerals Tablet 1 TABLET PO (08:53)
--- NOTE | 2020-03-03 08:57 | NURSING ---
HEART MONITOR IS READING,BATTERY 91%. STRIP GOOD CONTACT.
[2020-03-03 13:17] VITALS: BP 115/63; PULSE 67
[2020-03-03 14:43] VITALS: BP 105/56; PULSE 68; RESP 18; TEMP 36.1; O2SAT 95
--- NOTE | 2020-03-03 16:06 | NURSING ---
no new changes or orders today, did not update /family
[2020-03-03 19:57] VITALS: PULSE 71
[2020-03-03] MEDS: Atorvastatin Calcium 20 MG Tablet PO (20:10)
[2020-03-03] MEDS: Latanoprost 0.005% 1 Bottle 1 DRP EACH EYE (20:10)
[2020-03-04 06:17] LABS: Absolute Lymphocyte Count 1.82 X10^3/uL (0.83-4.51); Absolute Neutrophil Count 4.2 X10^3/uL (2.0-7.7); Basophil# 0.06 X10^3/uL; Basophil% 0.8 % (0-1); Eosinophil# 0.64 X10^3/uL; Eosinophils% 8.4 % (0-5); Hematocrit 41.4 % (40-54); Hemoglobin 13.2 g/dL (13.0-16.5); Lymphocyte # 1.82 X10^3/ul (4.0); Lymphocyte % 23.9 % (19-41); Mean Corp Hgb Conc 31.9 g/dL (32-36); Mean Corpuscular Hgb 29.7 pg (27.0-32.0); Mean Platelet Vol. 11.2 fl (6.2-12.0); Monocyte# 0.86 X10^3/uL; Monocyte% 11.3 % (0-10); NRBC Flagged by Analyzer 0 % (0-5); Neutrophil % 55.1 % (47-70); Platelet Count 224 K/mm3 (150-450); RBC Distribution Width CV 13.9 % (11.6-14.6); RBC Distribution Width SD 47.7 fl (35.1-43.9); Red Blood Count 4.45 M/mm3 (4.6-6.2); White Blood Count 7.6 K/mm3 (4.4-11.0)
[2020-03-04] MEDS: Memantine Hydrochloride 10 MG Tablet PO (06:20)
[2020-03-04] MEDS: Ciprofloxacin 250 MG Tablet PO ×2 (06:20→17:38)
[2020-03-04] MEDS: Senna/Docusate Sodium 1 Tablet PO ×2 (06:20→17:38)
[2020-03-04] MEDS: Polyethylene Glycol 3350 17 GM PACKET PO (06:20)
[2020-03-04] MEDS: Propranolol 10 MG Tablet 20 MG PO ×3 (06:21→20:19)
[2020-03-04] MEDS: Enoxaparin 40 MG/0.4 ML Syringe SC (06:21)
[2020-03-04] MEDS: Menthol/Lanolin/Calamine/Znox 113 GM Tube 1 APPLIC TOPICAL ×2 (06:24→17:38)
[2020-03-04 06:39] LABS: Anion Gap 3 (5-15); BUN 30 mg/dL (7-18); BUN/Creat Ratio 33.8 RATIO (10-20); Calcium,Total 8.7 mg/dL (8.5-10.1); Chloride 108 mmol/L (98-107); Creatinine, Serum 0.89 mg/dL (0.70-1.30); EST Glomerular Filtration Rate 88 mL/min (>60); Est Glom Filt Rate - Afr Amer 106 mL/min (>60); Estimated Creatinine Clearance 62.18 ml/min; Glucose 91 mg/dL (74-106); Sodium Level 142 mmol/L (136-145)
[2020-03-04] MEDS: Multivitamins,Ther W-Minerals Tablet 1 TABLET PO (07:58)
[2020-03-04] MEDS: Aspirin 81 MG TAB.CHEW PO (07:58)
[2020-03-04 10:00] VITALS: PULSE 72; RESP 16; O2SAT 96
--- NOTE | 2020-03-04 13:17 | NURSING ---
Called patients to update her on the patient. She expressed concerns about him coming home and needing to hire someone throughout the night. Patients states if he is taken to the bathroom at least once throughout the night, he is less [id number] to be incontinent.
[2020-03-04 14:53] VITALS: BP 106/56; PULSE 63; RESP 16; TEMP 36.7; O2SAT 96
[2020-03-04] MEDS: Latanoprost 0.005% 1 Bottle 1 DRP EACH EYE (20:18)
[2020-03-04] MEDS: Atorvastatin Calcium 20 MG Tablet PO (20:19)
[2020-03-05] MEDS: Senna/Docusate Sodium 1 Tablet PO ×2 (04:43→18:22)
[2020-03-05] MEDS: Propranolol 10 MG Tablet 20 MG PO ×2 (04:43→15:27)
[2020-03-05] MEDS: Menthol/Lanolin/Calamine/Znox 113 GM Tube 1 APPLIC TOPICAL ×2 (04:43→18:22)
[2020-03-05] MEDS: Ciprofloxacin 250 MG Tablet PO ×2 (04:44→18:22)
[2020-03-05] MEDS: Memantine Hydrochloride 10 MG Tablet PO (04:44)
[2020-03-05] MEDS: Enoxaparin 40 MG/0.4 ML Syringe SC (04:44)
[2020-03-05] MEDS: Polyethylene Glycol 3350 17 GM PACKET PO (04:46)
[2020-03-05 05:01] VITALS: PULSE 60; RESP 16; O2SAT 97
[2020-03-05] MEDS: Multivitamins,Ther W-Minerals Tablet 1 TABLET PO (08:23)
[2020-03-05] MEDS: Aspirin 81 MG TAB.CHEW PO (08:23)
--- NOTE | 2020-03-05 15:50 | NURSING ---
called in to speak with patient, update give, call transferred to patients room.
[2020-03-05 16:00] VITALS: BP 124/68; PULSE 68; RESP 16; TEMP 36.1; O2SAT 98
[2020-03-05] MEDS: Atorvastatin Calcium 20 MG Tablet PO (21:44)
[2020-03-05] MEDS: Latanoprost 0.005% 1 Bottle 1 DRP EACH EYE (21:49)
[2020-03-06] MEDS: Polyethylene Glycol 3350 17 GM PACKET PO (05:26)
[2020-03-06] MEDS: Memantine Hydrochloride 10 MG Tablet PO (05:27)
[2020-03-06] MEDS: Propranolol 10 MG Tablet 20 MG PO ×2 (05:27→21:24)
[2020-03-06] MEDS: Senna/Docusate Sodium 1 Tablet PO ×2 (05:28→17:58)
[2020-03-06] MEDS: Ciprofloxacin 250 MG Tablet PO (05:28)
[2020-03-06] MEDS: Enoxaparin 40 MG/0.4 ML Syringe SC (05:28)
[2020-03-06] MEDS: Menthol/Lanolin/Calamine/Znox 113 GM Tube 1 APPLIC TOPICAL ×2 (05:32→18:03)
[2020-03-06] MEDS: Multivitamins,Ther W-Minerals Tablet 1 TABLET PO (09:17)
[2020-03-06] MEDS: Aspirin 81 MG TAB.CHEW PO (09:18)
[2020-03-06 10:50] VITALS: PULSE 70; RESP 18; O2SAT 96
[2020-03-06 13:43] VITALS: BP 95/58; PULSE 69
[2020-03-06 14:33] VITALS: BP 95/58; PULSE 69; RESP 16; TEMP 36.4; O2SAT 97
[2020-03-06] MEDS: Latanoprost 0.005% 1 Bottle 1 DRP EACH EYE (21:17)
[2020-03-06 21:24] VITALS: BP 134/81; PULSE 66
[2020-03-06] MEDS: Atorvastatin Calcium 20 MG Tablet PO (21:24)
[2020-03-07 03:29] VITALS: RESP 18; TEMP 36.9
[2020-03-07 05:43] VITALS: BP 112/62; PULSE 60
[2020-03-07] MEDS: Enoxaparin 40 MG/0.4 ML Syringe SC (05:45)
[2020-03-07] MEDS: Menthol/Lanolin/Calamine/Znox 113 GM Tube 1 APPLIC TOPICAL ×2 (05:45→13:59)
[2020-03-07] MEDS: Senna/Docusate Sodium 1 Tablet PO ×2 (05:45→16:56)
[2020-03-07] MEDS: Polyethylene Glycol 3350 17 GM PACKET PO (05:45)
[2020-03-07] MEDS: Memantine Hydrochloride 10 MG Tablet PO (05:45)
[2020-03-07] MEDS: Propranolol 10 MG Tablet 20 MG PO ×3 (05:45→22:06)
[2020-03-07] MEDS: Aspirin 81 MG TAB.CHEW PO (08:36)
[2020-03-07] MEDS: Multivitamins,Ther W-Minerals Tablet 1 TABLET PO (08:36)
[2020-03-07 13:56] VITALS: BP 101/72; PULSE 69
--- NOTE | 2020-03-07 15:10 | NURSING ---
New strip reapplied to chest for heart monitor.
[2020-03-07 15:58] VITALS: BP 125/65; PULSE 60; RESP 16; TEMP 36.4; O2SAT 95
[2020-03-07 22:00] VITALS: PULSE 71; RESP 16
[2020-03-07] MEDS: Latanoprost 0.005% 1 Bottle 1 DRP EACH EYE (22:03)
[2020-03-07] MEDS: Atorvastatin Calcium 20 MG Tablet PO (22:07)
[2020-03-08] MEDS: Memantine Hydrochloride 10 MG Tablet PO (05:42)
[2020-03-08] MEDS: Enoxaparin 40 MG/0.4 ML Syringe SC (05:42)
[2020-03-08] MEDS: Senna/Docusate Sodium 1 Tablet PO ×2 (05:42→17:45)
[2020-03-08] MEDS: Menthol/Lanolin/Calamine/Znox 113 GM Tube 1 APPLIC TOPICAL ×2 (05:42→17:45)
[2020-03-08] MEDS: Propranolol 10 MG Tablet 20 MG PO ×3 (05:43→22:49)
[2020-03-08 07:13] VITALS: BP 93/62; PULSE 68; RESP 16; TEMP 36.9; O2SAT 96
[2020-03-08] MEDS: Multivitamins,Ther W-Minerals Tablet 1 TABLET PO (08:17)
[2020-03-08] MEDS: Aspirin 81 MG TAB.CHEW PO (08:18)
[2020-03-08 11:34] VITALS: PULSE 66; RESP 16; O2SAT 96
[2020-03-08 13:45] VITALS: BP 109/66; PULSE 69; RESP 16; TEMP 36; O2SAT 98
[2020-03-08] MEDS: Latanoprost 0.005% 1 Bottle 1 DRP EACH EYE (22:46)
[2020-03-08] MEDS: Atorvastatin Calcium 20 MG Tablet PO (22:49)
[2020-03-09 06:00] VITALS: BP 108/64; PULSE 64; RESP 16; TEMP 36.7; O2SAT 96
[2020-03-09] MEDS: Propranolol 10 MG Tablet 20 MG PO ×2 (07:24→14:17)
[2020-03-09] MEDS: Menthol/Lanolin/Calamine/Znox 113 GM Tube 1 APPLIC TOPICAL ×2 (07:24→19:13)
[2020-03-09] MEDS: Enoxaparin 40 MG/0.4 ML Syringe SC (07:24)
[2020-03-09] MEDS: Memantine Hydrochloride 10 MG Tablet PO (07:26)
[2020-03-09] MEDS: Multivitamins,Ther W-Minerals Tablet 1 TABLET PO (08:47)
[2020-03-09] MEDS: Aspirin 81 MG TAB.CHEW PO (08:47)
[2020-03-09 15:07] VITALS: BP 107/69; PULSE 80; RESP 16; TEMP 36.9; O2SAT 91
[2020-03-09] MEDS: Latanoprost 0.005% 1 Bottle 1 DRP EACH EYE (21:53)
[2020-03-09 21:55] VITALS: BP 97/72; PULSE 68
[2020-03-09] MEDS: Atorvastatin Calcium 20 MG Tablet PO (21:55)
[2020-03-09 22:00] VITALS: RESP 16
[2020-03-10 06:20] VITALS: BP 129/63; PULSE 62; RESP 16; TEMP 36.8; O2SAT 95
[2020-03-10] MEDS: Polyethylene Glycol 3350 17 GM PACKET PO (06:22)
[2020-03-10] MEDS: Propranolol 10 MG Tablet 20 MG PO ×3 (06:23→20:03)
[2020-03-10] MEDS: Memantine Hydrochloride 10 MG Tablet PO (06:23)
[2020-03-10] MEDS: Senna/Docusate Sodium 1 Tablet PO ×2 (06:23→16:38)
[2020-03-10] MEDS: Menthol/Lanolin/Calamine/Znox 113 GM Tube 1 APPLIC TOPICAL ×2 (06:24→16:38)
[2020-03-10] MEDS: Enoxaparin 40 MG/0.4 ML Syringe SC (06:24)
[2020-03-10] MEDS: Multivitamins,Ther W-Minerals Tablet 1 TABLET PO (08:39)
[2020-03-10] MEDS: Aspirin 81 MG TAB.CHEW PO (08:39)
[2020-03-10 10:22] VITALS: PULSE 60
--- NOTE | 2020-03-10 10:37 | PT ---
Family Communication Spoke with pt's , Brandi, and updated her on pt's progress with physical therapy. Pt is CGA for transfers and ambulation with FWW. He is CGA to ascend/desced 5 steps using B HR. He is CGA for all bed mobility. Pt continues to need single step cueing and repeated cueing to perform tasks given. Family training with pt's set-up for Friday, 03/15 at 10:00. Pt's pleased with pt's progess and thankful for the update.
[2020-03-10 13:28] VITALS: PULSE 61; RESP 16; O2SAT 91
[2020-03-10 14:14] VITALS: BP 106/67; PULSE 76; RESP 16; TEMP 36.9; O2SAT 94
--- NOTE | 2020-03-10 14:31 | ST ---
Call to Brandi to update on patient status. ST to discharge from caseload this date as pt has returned to baseline. Pt's verbalizes understanding and reports that she will attend family training next week with PT/OT.
[2020-03-10] MEDS: Latanoprost 0.005% 1 Bottle 1 DRP EACH EYE (19:56)
[2020-03-10] MEDS: Atorvastatin Calcium 20 MG Tablet PO (20:03)
[2020-03-10 20:04] VITALS: BP 133/74; PULSE 78
[2020-03-11 06:27] VITALS: BP 101/69; PULSE 67; RESP 16; TEMP 36.3; O2SAT 96
[2020-03-11] MEDS: Senna/Docusate Sodium 1 Tablet PO ×2 (06:30→17:23)
[2020-03-11] MEDS: Polyethylene Glycol 3350 17 GM PACKET PO (06:30)
[2020-03-11] MEDS: Propranolol 10 MG Tablet 20 MG PO ×3 (06:30→22:02)
[2020-03-11] MEDS: Enoxaparin 40 MG/0.4 ML Syringe SC (06:30)
[2020-03-11] MEDS: Memantine Hydrochloride 10 MG Tablet PO (06:30)
[2020-03-11] MEDS: Menthol/Lanolin/Calamine/Znox 113 GM Tube 1 APPLIC TOPICAL ×2 (06:30→17:23)
[2020-03-11 06:43] LABS: Absolute Lymphocyte Count 1.72 X10^3/uL (0.83-4.51); Absolute Neutrophil Count 3.3 X10^3/uL (2.0-7.7); Basophil# 0.06 X10^3/uL; Basophil% 0.9 % (0-1); Eosinophil# 0.58 X10^3/uL; Eosinophils% 8.8 % (0-5); Hematocrit 39.9 % (40-54); Hemoglobin 12.7 g/dL (13.0-16.5); Lymphocyte # 1.72 X10^3/ul (4.0); Lymphocyte % 26.1 % (19-41); Mean Corp Hgb Conc 31.8 g/dL (32-36); Mean Corpuscular Hgb 29.1 pg (27.0-32.0); Mean Corpuscular Volume 91.5 fL (80-94); Mean Platelet Vol. 10.9 fl (6.2-12.0); Monocyte# 0.89 X10^3/uL; Monocyte% 13.5 % (0-10); NRBC Flagged by Analyzer 0 % (0-5); Neutrophil % 50.1 % (47-70); Platelet Count 201 K/mm3 (150-450); RBC Distribution Width CV 13.5 % (11.6-14.6); RBC Distribution Width SD 45.9 fl (35.1-43.9); Red Blood Count 4.36 M/mm3 (4.6-6.2); White Blood Count 6.6 K/mm3 (4.4-11.0)
[2020-03-11 07:11] LABS: Anion Gap 3 (5-15); BUN 21 mg/dL (7-18); BUN/Creat Ratio 25.8 RATIO (10-20); Calcium,Total 8.4 mg/dL (8.5-10.1); Chloride 107 mmol/L (98-107); Creatinine, Serum 0.81 mg/dL (0.70-1.30); EST Glomerular Filtration Rate 97 mL/min (>60); Est Glom Filt Rate - Afr Amer 118 mL/min (>60); Estimated Creatinine Clearance 68.32 ml/min; Glucose 86 mg/dL (74-106); Potassium 3.9 mmol/L (3.5-5.1); Sodium Level 140 mmol/L (136-145)
[2020-03-11] MEDS: Multivitamins,Ther W-Minerals Tablet 1 TABLET PO (09:01)
[2020-03-11] MEDS: Aspirin 81 MG TAB.CHEW PO (09:03)
--- NOTE | 2020-03-11 09:08 | NURSING ---
monitor battery changed to heart monitor. good skin contact and monitoring.
[2020-03-11 13:39] VITALS: BP 101/61; PULSE 71; RESP 18; TEMP 37.3; O2SAT 96
[2020-03-11] MEDS: Latanoprost 0.005% 1 Bottle 1 DRP EACH EYE (22:01)
[2020-03-11] MEDS: Atorvastatin Calcium 20 MG Tablet PO (22:04)
[2020-03-11 22:05] VITALS: BP 132/65; PULSE 73; RESP 18; TEMP 37.2
[2020-03-12 05:40] VITALS: BP 122/70; PULSE 65; RESP 16; TEMP 36.7; O2SAT 95
[2020-03-12] MEDS: Menthol/Lanolin/Calamine/Znox 113 GM Tube 1 APPLIC TOPICAL ×2 (05:45→17:37)
[2020-03-12] MEDS: Propranolol 10 MG Tablet 20 MG PO ×3 (05:46→21:16)
[2020-03-12] MEDS: Enoxaparin 40 MG/0.4 ML Syringe SC (05:46)
[2020-03-12] MEDS: Memantine Hydrochloride 10 MG Tablet PO (05:46)
[2020-03-12] MEDS: Senna/Docusate Sodium 1 Tablet PO ×2 (05:46→17:38)
[2020-03-12] MEDS: Polyethylene Glycol 3350 17 GM PACKET PO (05:46)
[2020-03-12] MEDS: Multivitamins,Ther W-Minerals Tablet 1 TABLET PO (09:21)
[2020-03-12] MEDS: Aspirin 81 MG TAB.CHEW PO (09:21)
[2020-03-12 14:41] VITALS: BP 117/68; PULSE 60; RESP 14; TEMP 36.9; O2SAT 99
[2020-03-12 21:14] VITALS: BP 110/52; PULSE 64
[2020-03-12] MEDS: Atorvastatin Calcium 20 MG Tablet PO (21:16)
[2020-03-12] MEDS: Latanoprost 0.005% 1 Bottle 1 DRP EACH EYE (21:18)
--- NOTE | 2020-03-13 02:22 | NURSING ---
New heart monitor strip is reapplied to chest at this time.
[2020-03-13 05:20] VITALS: BP 122/63; PULSE 63; RESP 16; TEMP 36.5; O2SAT 97
[2020-03-13] MEDS: Polyethylene Glycol 3350 17 GM PACKET PO (05:23)
[2020-03-13] MEDS: Enoxaparin 40 MG/0.4 ML Syringe SC (05:23)
[2020-03-13] MEDS: Propranolol 10 MG Tablet 20 MG PO ×3 (05:23→20:03)
[2020-03-13] MEDS: Memantine Hydrochloride 10 MG Tablet PO (05:24)
[2020-03-13] MEDS: Senna/Docusate Sodium 1 Tablet PO ×2 (05:24→17:59)
[2020-03-13] MEDS: Menthol/Lanolin/Calamine/Znox 113 GM Tube 1 APPLIC TOPICAL ×2 (05:31→18:01)
[2020-03-13] MEDS: Aspirin 81 MG TAB.CHEW PO (08:19)
[2020-03-13] MEDS: Multivitamins,Ther W-Minerals Tablet 1 TABLET PO (08:19)
[2020-03-13 16:00] VITALS: BP 98/62; PULSE 70; RESP 16; TEMP 36.6; O2SAT 96
--- NOTE | 2020-03-13 19:46 | PN_ITS ---
Subjective: Resident seen for regulatory visit. He has no new complaints, but his speech is minimal. Vitals/I&O's: Vital Signs Temp Pulse Resp BP Pulse Ox 97.8 F 70 16 98/62 96 03/13/20 16:00 03/13/20 16:00 03/13/20 16:00 03/13/20 16:00 03/13/20 16:00 Oxygen Delivery Method Room Air Weight: 65.317 kg Body Mass Index (BMI) 20.2 Finger Stick Blood Glucose 101 Intake and Output for Last 24 Hours 03/11/20 03/12/20 03/13/20 23:59 23:59 23:59 Intake Total 600 / 600 440 / 440 360 / 360 Balance 600 / 600 440 / 440 360 / 360 Past Medical History Past Medical History (Chronic Problems): Chronic Problems Cardiomyopathy (Chronic) Atrial flutter (Chronic) Prostate cancer (Chronic) Alzheimer disease (Chronic) Asthma (Chronic) Glaucoma (Chronic) Squamous cell carcinoma skin of arm (Chronic) Bilateral inguinal hernia (Chronic) generalized arthritis (Chronic) Acid reflux (Chronic) History of malignant neoplasm of prostate (Chronic) Hyperlipidemia (Chronic) Dementia (Chronic) Atrial fibrillation (Chronic) Allergies amoxicillin [Amoxicillin] Adverse Reaction (Verified 04/24/14 10:40) Rash tetracycline [Tetracycline] Adverse Reaction (Verified 04/24/14 10:40) Rash Home Medications: Ambulatory Orders Medication Instructions Recorded Aspirin [Aspirin, Baby] 81 mg PO DAILY@0800 04/24/14 Bimatoprost [Lumigan Opthalmic] 1 drop EACH EYE QHS 04/24/14 Memantine Hydrochloride [Namenda] 10 mg PO DAILY 04/24/14 Multivitamins,Therapeutic 1 tablet PO DAILY 04/24/14 [Multivitamin] Ondansetron [Zofran Odt] 4 mg PO Q8H PRN PRN #10 tablet 04/24/14 Rivastigmine 9.5mg Patch [Exelon 1 patch TD Q24H 04/24/14 9.5MG/24HR PATCH] Atorvastatin Calcium [Lipitor] 20 mg PO QHS 02/18/20 Docusate Sodium [Docu Liquid] 100 mg PO BID 02/18/20 Enoxaparin Sodium [Lovenox] 40 mg SQ DAILY 02/18/20 Epinephrine [Epipen] 0.3 mg IM X1 02/18/20 Propranolol HCl [Inderal (Beta 20 mg PO BID 02/18/20 Tyrone)] Propylene Glycol [Systane Complete] 1.5 ml OP DAILY 02/18/20 Surgical History: cataract - OS., herniorrhaphy - Bilateral inguinal., - - Mitral valve repair, Brachytherapy, right hand reconstruction. Psychiatric History: No pertinent psych hx Lives: Spouse/ Significant Other - . Smoking Status: Never smoker Tobacco Use: Non-smoker Alcohol: None Drugs: None - *Family History Paternal History Items: Cancer - Mulitple Myleoma. Maternal History Items: No pertinent history Capacity - Capacity Assessment Tool Can the patient make a choice & communicate that choice?: No Can the patient understand benefits, risks and alternatives?: No Can the patient make a logical, rational choice?: No Is the choice the patient makes consistent w/ their values?: Unable to Determine Is there an impending, emergent risk to the patient?: No Does the patient have an Advance Directive?: Yes Is there a Surrogate Available?: Yes i.e. HCPOA: Yes i.e. close relative (spouse, child, parent, sibling)?: Yes Review of Systems Constitutional: Denies: Chills, Fever, Weight Change HEENT: Denies: Head Aches, Sinus Congestion, Sinus Drainage Cardiovascular: Denies: Chest Pain, Palpitations Respiratory: Denies: Cough, Shortness of breath at rest, Sputum production Gastrointestinal: Denies: Abdominal Pain, Nausea, Vomiting Genitourinary: Denies: Dysuria Musculoskeletal: Denies: Joint Pain, Joint Tenderness Skin: Denies: Rash, Wounds Neurological: Denies: Numbness, Tingling, Focal weakness Psychiatric: Denies: Anxiety, Depression, Homicidal Ideations, Suicidal Ideations Hematologic/ Lymphatic: Denies: Easy Bruising, Easy Bleeding Patient Problems: Active and Suspected Problems Debility (Acute) Stroke (Acute) Right hemiparesis (Acute) Expressive aphasia (Acute) - Physical Exam Vitals/I&O's: Vital Signs Temp Pulse Resp BP Pulse Ox 97.8 F 70 16 98/62 96 03/13/20 16:00 03/13/20 16:00 03/13/20 16:00 03/13/20 16:00 03/13/20 16:00 Oxygen Delivery Method Room Air Weight: 65.317 kg Body Mass Index (BMI) 20.2 Finger Stick Blood Glucose 101 Intake and Output for Last 24 Hours 03/11/20 03/12/20 03/13/20 23:59 23:59 23:59 Intake Total 600 / 600 440 / 440 360 / 360 Balance 600 / 600 440 / 440 360 / 360 General: Alert, Oriented x3, Cooperative HEENT: Atraumatic, PERRLA, EOMI, Normocephalic Neck: Supple, No JVD, Negative Carotid Bruits Lungs: Clear to auscultation, Normal air movement Cardiovascular: Regular rate, No murmurs Abdomen: Bowel Sounds Present, Soft, Non Tender Extremities: No edema, Capillary Refill Less than 3 Seconds Skin: No rashes, No breakdown Musculoskeletal: No Tenderness to Palpation of Joints or Extremities Neurological: Cranial nerves II-XII grossly intact Psych/Mental Status: Normal Affect, Appropriate Current Medications Acetaminophen (Tylenol) 1,000 mg PO Q6H PRN PRN Reason: Pain Score 1-10/10 Aspirin (Aspirin, Baby) 81 mg PO DAILY@0800 [facility] Last Admin: 03/13/20 08:19 Dose: 81 mg Documented by: Atorvastatin Calcium (Lipitor) 20 mg PO QHS [facility] Last Admin: 03/12/20 21:16 Dose: 20 mg Documented by: Bisacodyl (Dulcolax) 10 mg PO DAILY PRN PRN Reason: Constipation Calamine/Phenol (Calmoseptine Ointment) 1 applic TOPICAL BID [facility]; Protocol Last Admin: 03/13/20 18:01 Dose: 1 applicatio Documented by: Enoxaparin Sodium (Lovenox) 40 mg SC DAILY [facility] Last Admin: 03/13/20 05:23 Dose: 40 mg Documented by: Epinephrine HCl (Symjepi) 0.3 mg IM X1 PRN PRN Reason: Allergic reaction Latanoprost (Xalatan Opthalmic) 1 drop EACH EYE QHS [facility] Last Admin: 03/12/20 21:18 Dose: 1 drop Documented by: Memantine (Namenda) 10 mg PO DAILY [facility] Last Admin: 03/13/20 05:24 Dose: 10 mg Documented by: Multivitamins/Minerals (Multivitamin With Minerals (Bkc)) [facility] Last Admin: 03/13/20 08:19 Dose: 1 tablet Documented by: Polyethylene Glycol (Miralax) 17 gm PO DAILY [facility] Last Admin: 03/13/20 05:23 Dose: 17 gm Documented by: Propranolol HCl (Inderal) 20 mg PO TID [facility] Last Admin: 03/13/20 14:35 Dose: 20 mg Documented by: Senna/Docusate Sodium (Senokot-S, Liliane-Colace) 1 tablet PO BID [facility] Last Admin: 03/13/20 17:59 Dose: 1 tablet Documented by: Assessment/Plan All Active Problems Debility (Acute) Stroke (Acute) Right hemiparesis (Acute) Expressive aphasia (Acute) 79 year old male with below past medical history hospitalized for left ALEX stroke, status post tPA, admitted to TCU with debility, here for rehabilitation, strengthening, prior to discharge home with . * Debility - PT/OT. * Cognition/Expressive aphasia - ST. * Pain - Tylenol 1000MG Q6H PRN pain (1-10). * Bowel - Miralax 17GM daily, Senna/colace 1 tablet BID, Dulcolax 10MG daily PRN. * Adult immunization - Administer Prevnar 13, Pneumovax 23, Fluzone as appropriate. * DVT prophylaxis - Lovenox 40MG SC daily. * Stroke - Aspirin 81MG daily. * Hyperlipidemia - Atorvastatin 20MG QHS. * Allergic Reaction - Epinephrine 0.3MG IM x 1 PRN allergy. * Glaucoma - Latanoprost 0.005% 1GTT OU QHS. * Alzheimer Disease - Memantine 10MG daily. * Nutrition - MVI daily. * Dry eye - Artificial Tears 1GTT OU Q1H PRN. * Hypertension - Propranolol 20MG TID. * Skin irritation - Calmoseptine BID.
[2020-03-13] MEDS: Latanoprost 0.005% 1 Bottle 1 DRP EACH EYE (20:01)
[2020-03-13] MEDS: Atorvastatin Calcium 20 MG Tablet PO (20:02)
[2020-03-14 04:00] VITALS: BP 118/59; PULSE 56; RESP 16; TEMP 35.8; O2SAT 97
[2020-03-14] MEDS: Memantine Hydrochloride 10 MG Tablet PO (05:01)
[2020-03-14] MEDS: Senna/Docusate Sodium 1 Tablet PO ×2 (05:01→17:07)
[2020-03-14] MEDS: Enoxaparin 40 MG/0.4 ML Syringe SC (05:01)
[2020-03-14] MEDS: Polyethylene Glycol 3350 17 GM PACKET PO (05:01)
[2020-03-14] MEDS: Propranolol 10 MG Tablet 20 MG PO ×3 (05:02→20:02)
[2020-03-14] MEDS: Menthol/Lanolin/Calamine/Znox 113 GM Tube 1 APPLIC TOPICAL ×2 (05:02→15:17)
--- NOTE | 2020-03-14 06:51 | PCA ---
Other aide and i were performing AM care on pt, pt became very aggressive towards staff by pushing and grabbing at our arms and hands. reassured pt that we were just getting him dressed and in chair for breakfast pt began kicking his legs towards staff when applying pants
[2020-03-14] MEDS: Multivitamins,Ther W-Minerals Tablet 1 TABLET PO (08:12)
[2020-03-14] MEDS: Aspirin 81 MG TAB.CHEW PO (08:12)
[2020-03-14] MEDS: Acetaminophen 500 MG Tablet 1000 MG PO (08:14)
[2020-03-14 15:02] VITALS: BP 91/55; PULSE 66; RESP 14; TEMP 37.1; O2SAT 95
[2020-03-14 20:00] VITALS: BP 101/65; PULSE 64
[2020-03-14] MEDS: Atorvastatin Calcium 20 MG Tablet PO (20:02)
[2020-03-14] MEDS: Latanoprost 0.005% 1 Bottle 1 DRP EACH EYE (20:43)
[2020-03-15 06:11] VITALS: BP 139/54; PULSE 58; RESP 18; TEMP 36.9; O2SAT 95
[2020-03-15] MEDS: Memantine Hydrochloride 10 MG Tablet PO (06:13)
[2020-03-15] MEDS: Propranolol 10 MG Tablet 20 MG PO ×3 (06:13→20:24)
[2020-03-15] MEDS: Polyethylene Glycol 3350 17 GM PACKET PO (06:13)
[2020-03-15] MEDS: Senna/Docusate Sodium 1 Tablet PO ×2 (06:13→20:25)
[2020-03-15] MEDS: Enoxaparin 40 MG/0.4 ML Syringe SC (06:13)
[2020-03-15] MEDS: Menthol/Lanolin/Calamine/Znox 113 GM Tube 1 APPLIC TOPICAL ×2 (06:23→20:22)
--- NOTE | 2020-03-15 06:25 | NURSING ---
Heart monitor chest strip changed. Phone shows monitoring.
[2020-03-15] MEDS: Multivitamins,Ther W-Minerals Tablet 1 TABLET PO (09:12)
[2020-03-15] MEDS: Aspirin 81 MG TAB.CHEW PO (09:13)
[2020-03-15 13:46] VITALS: BP 109/52; PULSE 78; RESP 17; TEMP 37.3; O2SAT 94
[2020-03-15] MEDS: Atorvastatin Calcium 20 MG Tablet PO (20:23)
[2020-03-15] MEDS: Latanoprost 0.005% 1 Bottle 1 DRP EACH EYE (20:26)
--- NOTE | 2020-03-15 20:58 | PCM.DC ---
- Discharge Diagnoses Current Active Problems: Current Active and Chronic Problems Debility (Acute) Stroke (Acute) Right hemiparesis (Acute) Expressive aphasia (Acute) Cardiomyopathy (Chronic) Atrial flutter (Chronic) Prostate cancer (Chronic) Alzheimer disease (Chronic) Asthma (Chronic) Glaucoma (Chronic) Squamous cell carcinoma skin of arm (Chronic) Bilateral inguinal hernia (Chronic) You will use the following diet at home:: No restrictions, Regular Your food should be the consistency of: Regular Your liquids should be the consistency of: Regular/Thin Discharge Activity: Return to Normal Activity, May Shower, Use Walker Weight Bearing Status: Weight bearing as tolerated Call your doctor if you observe: Fever of 101 or Higher, Inability to urinate, Inability to have a bowel movement, Shortness of breath, Chest pain, Uncontrolled pain Allergies/Adverse Reactions: Allergies amoxicillin [Amoxicillin] Adverse Reaction (Verified 04/24/14 10:40) Rash tetracycline [Tetracycline] Adverse Reaction (Verified 04/24/14 10:40) Rash Medications to take at Discharge Aspirin [Aspirin, Baby] 81 mg PO DAILY@0800 04/24/14 Bimatoprost [Lumigan Opthalmic] 1 drop EACH EYE QHS 04/24/14 Memantine Hydrochloride [Namenda] 10 mg PO DAILY 04/24/14 Multivitamins,Therapeutic [Multivitamin] 1 tablet PO DAILY 04/24/14 Atorvastatin Calcium [Lipitor] 20 mg PO QHS 02/18/20 Epinephrine [Epipen] 0.3 mg IM X1 02/18/20 Acetaminophen [Tylenol] 1,000 mg PO Q6H PRN tablet 03/15/20 Aspirin [Aspirin, Baby] 81 mg PO DAILY@0800 tab.chew 03/15/20 Atorvastatin Calcium [Lipitor] 20 mg PO QHS #30 tab 03/15/20 Epinephrine (for allergic rxn) [Symjepi] 0.3 mg IM X1 PRN syringe 03/15/20 Memantine Hydrochloride [Namenda] 10 mg PO DAILY #30 tab 03/15/20 Menthol/Lanolin/Calamine/Znox [Calmoseptine Ointment] 1 applic TOPICAL BID tube 03/15/20 Multivitamins,Ther W-Minerals [Multivitamin With Minerals (BKC)] 1 tablet PO DAILYCM tablet 03/15/20 Peg 400/Hypromellose/Glycerin [Artificial Tears] 1 drop EACH EYE Q1H PRN bottle 03/15/20 Propranolol HCl [Inderal (Beta Tyrone)] 20 mg PO TID #180 tab 03/15/20 The following prescriptions were given: Propranolol HCl [Inderal (Beta Tyrone)] 20 mg PO TID #180 tab Prescription Printed Atorvastatin Calcium [Lipitor] 20 mg PO QHS #30 tab Prescription Printed Memantine Hydrochloride [Namenda] 10 mg PO DAILY #30 tab Prescription Printed Primary Care Physician: Julia Hilliard MD [Primary Care Provider] - Please follow up with your Primary Care Physician in: 1 week. Test Results: Test results from this visit will be discussed in further detail at your follow-up appointment, if applicable. Please Follow Up With: Astrid Osuna (neuro) When: schedule after DC from TCU Please Follow Up With: Nurse Visit with Garrett Roth Please Follow Up With: Laurie Mon, TRANSFER MAN Please Follow Up With: [facility] When: follow up heart monitor readings Proposed Discharge Date: 03/23/20
--- NOTE | 2020-03-15 21:00 | PCM.DC.SUM ---
Discharge Date and Diagnosis - Problem List Patient Problems: Active and Suspected Problems Debility (Acute) Stroke (Acute) Right hemiparesis (Acute) Expressive aphasia (Acute) Date of Admission: 02/18/20 Date of Discharge: 03/23/20 - Primary Discharge Diagnosis Acute Problems: Active Problems Debility (Acute) Stroke (Acute) Right hemiparesis (Acute) Expressive aphasia (Acute) - Secondary Discharge Diagnosis Chronic Problems: Chronic Problems Cardiomyopathy (Chronic) Atrial flutter (Chronic) Prostate cancer (Chronic) Alzheimer disease (Chronic) Asthma (Chronic) Glaucoma (Chronic) Squamous cell carcinoma skin of arm (Chronic) Bilateral inguinal hernia (Chronic) generalized arthritis (Chronic) Acid reflux (Chronic) History of malignant neoplasm of prostate (Chronic) Hyperlipidemia (Chronic) Dementia (Chronic) Atrial fibrillation (Chronic) Hospital Course and Treatment Imaging Results: 02/18/20 12:44 Diet: Regular Diet Food consistency:: Regular Liquid Consistency:: Regular/Thin Type of Dietary Supplement:: Vanilla Magic Cup BID Is pt able to select menu?: No Diet Comments: Feed;likes eggs,beef,pork,chicken,pasta--no seafood; Ensure pudding w/break Operations: None Procedures: None Summary of Care Provided: The patient is a 79 year old Male with below past medical history hospitalized for left ALEX stroke, status post tPA, admitted to TCU with debility, here for rehabilitation, strengthening, prior to discharge home with . Discharge home with , Home Health Care PT/OT/[employer]. Patient Problems: Active and Suspected Problems Debility (Acute) Stroke (Acute) Right hemiparesis (Acute) Expressive aphasia (Acute) - Physical Exam Vitals/I&O's: Vital Signs Temp Pulse Resp BP Pulse Ox 99.1 F 78 17 109/52 L 94 03/15/20 13:46 03/15/20 13:46 03/15/20 13:46 03/15/20 13:46 03/15/20 13:46 Oxygen Delivery Method Room Air Weight: 66.27 kg Body Mass Index (BMI) 20.2 Finger Stick Blood Glucose 101 Intake and Output for Last 24 Hours 03/13/20 03/14/20 03/15/20 23:59 23:59 23:59 Intake Total 600 / 600 600 / 600 360 / 360 Balance 600 / 600 600 / 600 360 / 360 Current Medications Acetaminophen (Tylenol) 1,000 mg PO Q6H PRN PRN Reason: Pain Score 1-10/10 Last Admin: 03/14/20 08:14 Dose: 1,000 mg Documented by: Aspirin (Aspirin, Baby) 81 mg PO DAILY@0800 [facility] Last Admin: 03/15/20 09:13 Dose: 81 mg Documented by: Atorvastatin Calcium (Lipitor) 20 mg PO QHS [facility] Last Admin: 03/15/20 20:23 Dose: 20 mg Documented by: Bisacodyl (Dulcolax) 10 mg PO DAILY PRN PRN Reason: Constipation Calamine/Phenol (Calmoseptine Ointment) 1 applic TOPICAL BID [facility]; Protocol Last Admin: 03/15/20 20:22 Dose: 1 applicatio Documented by: Enoxaparin Sodium (Lovenox) 40 mg SC DAILY [facility] Last Admin: 03/15/20 06:13 Dose: 40 mg Documented by: Epinephrine HCl (Symjepi) 0.3 mg IM X1 PRN PRN Reason: Allergic reaction Latanoprost (Xalatan Opthalmic) 1 drop EACH EYE QHS [facility] Last Admin: 03/15/20 20:26 Dose: 1 drop Documented by: Memantine (Namenda) 10 mg PO DAILY [facility] Last Admin: 03/15/20 06:13 Dose: 10 mg Documented by: Multivitamins/Minerals (Multivitamin With Minerals (Bkc)) 1 tablet PO DAILYCM [facility] Last Admin: 03/15/20 09:12 Dose: 1 tablet Documented by: Polyethylene Glycol (Miralax) 17 gm PO DAILY [facility] Last Admin: 03/15/20 06:13 Dose: 17 gm Documented by: Propranolol HCl (Inderal) 20 mg PO TID [facility] Last Admin: 03/15/20 20:24 Dose: 20 mg Documented by: Senna/Docusate Sodium (Senokot-S, Liliane-Colace) 1 tablet PO BID [facility] Last Admin: 03/15/20 20:25 Dose: 1 tablet Documented by: Discharge Diet: No Restrictions Discharge Activity: Return to Normal Activity, May Shower, Use Walker Weight Bearing Status: Weight bearing as tolerated Call your doctor if you observe: Fever of 101 or Higher, Inability to urinate, Inability to have a bowel movement, Shortness of breath, Chest pain, Uncontrolled pain Home Medications: Medications to take at Discharge Aspirin [Aspirin, Baby] 81 mg PO DAILY@0800 04/24/14 Bimatoprost [Lumigan Opthalmic] 1 drop EACH EYE QHS 04/24/14 Memantine Hydrochloride [Namenda] 10 mg PO DAILY 04/24/14 Multivitamins,Therapeutic [Multivitamin] 1 tablet PO DAILY 04/24/14 Atorvastatin Calcium [Lipitor] 20 mg PO QHS 02/18/20 Epinephrine [Epipen] 0.3 mg IM X1 02/18/20 Acetaminophen [Tylenol] 1,000 mg PO Q6H PRN tablet 03/15/20 Aspirin [Aspirin, Baby] 81 mg PO DAILY@0800 tab.chew 03/15/20 Atorvastatin Calcium [Lipitor] 20 mg PO QHS #30 tab 03/15/20 Epinephrine (for allergic rxn) [Symjepi] 0.3 mg IM X1 PRN syringe 03/15/20 Memantine Hydrochloride [Namenda] 10 mg PO DAILY #30 tab 03/15/20 Menthol/Lanolin/Calamine/Znox [Calmoseptine Ointment] 1 applic TOPICAL BID tube 03/15/20 Multivitamins,Ther W-Minerals [Multivitamin With Minerals (BKC)] 1 tablet PO DAILYCM tablet 03/15/20 Peg 400/Hypromellose/Glycerin [Artificial Tears] 1 drop EACH EYE Q1H PRN bottle 03/15/20 Propranolol HCl [Inderal (Beta Tyrone)] 20 mg PO TID #180 tab 03/15/20 Following Prescrptions Were Given to Patient: Propranolol HCl [Inderal (Beta Tyrone)] 20 mg PO TID #180 tab Prescription Printed Atorvastatin Calcium [Lipitor] 20 mg PO QHS #30 tab Prescription Printed Memantine Hydrochloride [Namenda] 10 mg PO DAILY #30 tab Prescription Printed Primary Care Physician: Julia Hilliard MD [Primary Care Provider] - Please follow up with your Primary Care Physician in: 1 week. Please Follow Up With: Astrid Osuna (neuro) When: schedule after DC from TCU Please Follow Up With: Nurse Visit with Garrett Roth Please Follow Up With: Laurie Mon, G[employer] RANGE ATTENDANT Please Follow Up With: [facility] When: follow up heart monitor readings Disposition: Home with Home Health Minutes spent on discharge:: 35 Patient Condition:: Stable Medical Necessity - Tobacco Use Smoking Status: Never smoker Tobacco Use: Non-smoker Meaningful Use Info Meaningful Use Diagnoses (Choose all that apply): None applicable
[2020-03-15 22:00] VITALS: RESP 16
[2020-03-16] MEDS: Polyethylene Glycol 3350 17 GM PACKET PO (05:54)
[2020-03-16] MEDS: Propranolol 10 MG Tablet 20 MG PO ×3 (05:54→21:35)
[2020-03-16] MEDS: Enoxaparin 40 MG/0.4 ML Syringe SC (05:54)
[2020-03-16] MEDS: Menthol/Lanolin/Calamine/Znox 113 GM Tube 1 APPLIC TOPICAL ×2 (05:55→14:35)
[2020-03-16] MEDS: Memantine Hydrochloride 10 MG Tablet PO (05:55)
[2020-03-16] MEDS: Senna/Docusate Sodium 1 Tablet PO (05:56)
[2020-03-16 06:18] VITALS: BP 116/65; PULSE 74; RESP 16; TEMP 36.6; O2SAT 96
[2020-03-16] MEDS: Aspirin 81 MG TAB.CHEW PO (08:46)
[2020-03-16] MEDS: Multivitamins,Ther W-Minerals Tablet 1 TABLET PO (08:46)
[2020-03-16 09:43] VITALS: PULSE 65; RESP 16; O2SAT 98
--- NOTE | 2020-03-16 13:29 | CASEMGMT ---
Social Work Spoke with about DC plans. requesting [facility] - Referral made for PT/OT. Referral amde to [facility] [place]WW and [facility]. Pt to DC home 03/23. REJI JaureguiW
--- NOTE | 2020-03-16 13:38 | PT ---
Family Communication Spoke with pt's , Brandi, about getting built-up silverware for pt. Pt has been using built up silverware while here in TCU. Pt's stated she will get him same silverware for him to use at home. pt's appreciative of phone call.
[2020-03-16 14:58] VITALS: BP 121/75; PULSE 70; RESP 18; TEMP 36.3; O2SAT 96
--- NOTE | 2020-03-16 15:16 | NURSING ---
spoke with , Brandi regarding pt home medications. She only needs lipitor for home discharge & would like Dr Fox to call it to pharmacy @ [facility].
[2020-03-16 21:27] VITALS: BP 105/71; PULSE 77; O2SAT 93
[2020-03-16] MEDS: Latanoprost 0.005% 1 Bottle 1 DRP EACH EYE (21:35)
[2020-03-16] MEDS: Atorvastatin Calcium 20 MG Tablet PO (21:35)
[2020-03-17 06:35] VITALS: BP 116/62; PULSE 65; RESP 18; TEMP 36.7; O2SAT 96
[2020-03-17] MEDS: Memantine Hydrochloride 10 MG Tablet PO (06:36)
[2020-03-17] MEDS: Propranolol 10 MG Tablet 20 MG PO ×3 (06:36→20:18)
[2020-03-17] MEDS: Enoxaparin 40 MG/0.4 ML Syringe SC (06:39)
[2020-03-17] MEDS: Menthol/Lanolin/Calamine/Znox 113 GM Tube 1 APPLIC TOPICAL ×2 (06:40→17:53)
[2020-03-17] MEDS: Aspirin 81 MG TAB.CHEW PO (08:23)
[2020-03-17] MEDS: Multivitamins,Ther W-Minerals Tablet 1 TABLET PO (08:23)
[2020-03-17 10:00] VITALS: BP 110/79; PULSE 68; RESP 18; TEMP 36.6; O2SAT 92
[2020-03-17] MEDS: Atorvastatin Calcium 20 MG Tablet PO (20:18)
[2020-03-17] MEDS: Latanoprost 0.005% 1 Bottle 1 DRP EACH EYE (20:18)
[2020-03-17 20:19] VITALS: BP 111/66; PULSE 75; RESP 18; TEMP 37.2
[2020-03-18 04:00] VITALS: BP 123/64; PULSE 57; RESP 16; TEMP 36.8; O2SAT 95
[2020-03-18] MEDS: Menthol/Lanolin/Calamine/Znox 113 GM Tube 1 APPLIC TOPICAL ×2 (05:25→18:19)
[2020-03-18] MEDS: Memantine Hydrochloride 10 MG Tablet PO (05:26)
[2020-03-18] MEDS: Propranolol 10 MG Tablet 20 MG PO ×3 (05:26→22:16)
[2020-03-18] MEDS: Enoxaparin 40 MG/0.4 ML Syringe SC (05:26)
[2020-03-18] MEDS: Aspirin 81 MG TAB.CHEW PO (08:44)
[2020-03-18] MEDS: Multivitamins,Ther W-Minerals Tablet 1 TABLET PO (08:44)
[2020-03-18 10:00] VITALS: PULSE 91; RESP 16; O2SAT 99
[2020-03-18 13:51] VITALS: BP 106/50; PULSE 64; RESP 16; TEMP 36.8; O2SAT 98
--- NOTE | 2020-03-18 18:38 | NURSING ---
provided update to family
[2020-03-18] MEDS: Atorvastatin Calcium 20 MG Tablet PO (22:16)
[2020-03-18] MEDS: Latanoprost 0.005% 1 Bottle 1 DRP EACH EYE (22:17)
[2020-03-19 04:00] VITALS: BP 134/83; PULSE 79; RESP 16; TEMP 36.7; O2SAT 94
[2020-03-19] MEDS: Enoxaparin 40 MG/0.4 ML Syringe SC (06:28)
[2020-03-19] MEDS: Menthol/Lanolin/Calamine/Znox 113 GM Tube 1 APPLIC TOPICAL ×2 (06:28→14:50)
[2020-03-19] MEDS: Propranolol 10 MG Tablet 20 MG PO ×2 (06:28→14:49)
[2020-03-19] MEDS: Memantine Hydrochloride 10 MG Tablet PO (06:29)
[2020-03-19] MEDS: Multivitamins,Ther W-Minerals Tablet 1 TABLET PO (07:45)
[2020-03-19] MEDS: Aspirin 81 MG TAB.CHEW PO (07:45)
[2020-03-19 14:46] VITALS: BP 135/62; PULSE 62; RESP 14; TEMP 37.2; O2SAT 96
[2020-03-19] MEDS: Latanoprost 0.005% 1 Bottle 1 DRP EACH EYE (20:11)
[2020-03-19] MEDS: Atorvastatin Calcium 20 MG Tablet PO (20:11)
[2020-03-19 20:15] VITALS: BP 96/47; PULSE 70
[2020-03-20 04:00] VITALS: BP 114/57; PULSE 57; RESP 14; O2SAT 96
[2020-03-20] MEDS: Menthol/Lanolin/Calamine/Znox 113 GM Tube 1 APPLIC TOPICAL ×2 (05:35→17:17)
[2020-03-20] MEDS: Memantine Hydrochloride 10 MG Tablet PO (05:36)
[2020-03-20] MEDS: Propranolol 10 MG Tablet 20 MG PO ×3 (05:36→20:02)
[2020-03-20] MEDS: Enoxaparin 40 MG/0.4 ML Syringe SC (05:40)
[2020-03-20] MEDS: Aspirin 81 MG TAB.CHEW PO (08:21)
[2020-03-20] MEDS: Multivitamins,Ther W-Minerals Tablet 1 TABLET PO (08:21)
[2020-03-20 11:06] VITALS: PULSE 61; RESP 16; O2SAT 94
[2020-03-20 15:23] VITALS: BP 106/67; PULSE 85; RESP 14; TEMP 36.8; O2SAT 96
[2020-03-20] MEDS: Latanoprost 0.005% 1 Bottle 1 DRP EACH EYE (19:59)
[2020-03-20] MEDS: Atorvastatin Calcium 20 MG Tablet PO (20:00)
[2020-03-21 05:23] VITALS: BP 97/70; PULSE 60; RESP 16; TEMP 37.2; O2SAT 95
[2020-03-21] MEDS: Enoxaparin 40 MG/0.4 ML Syringe SC (05:26)
[2020-03-21] MEDS: Memantine Hydrochloride 10 MG Tablet PO (05:26)
[2020-03-21] MEDS: Menthol/Lanolin/Calamine/Znox 113 GM Tube 1 APPLIC TOPICAL ×2 (05:27→20:50)
[2020-03-21 05:50] LABS: Absolute Lymphocyte Count 1.86 X10^3/uL (0.83-4.51); Absolute Neutrophil Count 3.9 X10^3/uL (2.0-7.7); Basophil# 0.05 X10^3/uL; Basophil% 0.7 % (0-1); Eosinophil# 0.63 X10^3/uL; Eosinophils% 8.6 % (0-5); Hematocrit 39.6 % (40-54); Hemoglobin 12.8 g/dL (13.0-16.5); Lymphocyte # 1.86 X10^3/ul (4.0); Lymphocyte % 25.5 % (19-41); Mean Corp Hgb Conc 32.3 g/dL (32-36); Mean Corpuscular Hgb 29.5 pg (27.0-32.0); Mean Corpuscular Volume 91.2 fL (80-94); Mean Platelet Vol. 11.4 fl (6.2-12.0); Monocyte# 0.84 X10^3/uL; Monocyte% 11.5 % (0-10); NRBC Flagged by Analyzer 0 % (0-5); Neutrophil % 53.4 % (47-70); Platelet Count 172 K/mm3 (150-450); RBC Distribution Width CV 13.5 % (11.6-14.6); RBC Distribution Width SD 45.7 fl (35.1-43.9); Red Blood Count 4.34 M/mm3 (4.6-6.2); White Blood Count 7.3 K/mm3 (4.4-11.0)
[2020-03-21 06:09] LABS: Anion Gap 5 (5-15); BUN 25 mg/dL (7-18); Calcium,Total 8.5 mg/dL (8.5-10.1); Chloride 108 mmol/L (98-107); Creatinine, Serum 0.86 mg/dL (0.70-1.30); EST Glomerular Filtration Rate 91 mL/min (>60); Est Glom Filt Rate - Afr Amer 110 mL/min (>60); Estimated Creatinine Clearance 65.29 ml/min; Glucose 90 mg/dL (74-106); Potassium 4.2 mmol/L (3.5-5.1); Sodium Level 141 mmol/L (136-145)
[2020-03-21] MEDS: Multivitamins,Ther W-Minerals Tablet 1 TABLET PO (08:11)
[2020-03-21] MEDS: Aspirin 81 MG TAB.CHEW PO (08:11)
[2020-03-21] MEDS: Acetaminophen 500 MG Tablet 1000 MG PO (08:13)
[2020-03-21] MEDS: Propranolol 10 MG Tablet 20 MG PO ×2 (14:31→20:51)
[2020-03-21 14:37] VITALS: BP 102/49; PULSE 92
[2020-03-21 16:03] VITALS: BP 98/56; PULSE 63; RESP 20; TEMP 37; O2SAT 98
[2020-03-21] MEDS: Latanoprost 0.005% 1 Bottle 1 DRP EACH EYE (20:48)
[2020-03-21] MEDS: Atorvastatin Calcium 20 MG Tablet PO (20:50)
[2020-03-21 20:51] VITALS: BP 109/56; PULSE 66
[2020-03-22] MEDS: Menthol/Lanolin/Calamine/Znox 113 GM Tube 1 APPLIC TOPICAL ×2 (05:10→18:25)
[2020-03-22 05:13] VITALS: BP 120/72; PULSE 59; RESP 16; TEMP 36.8; O2SAT 98
[2020-03-22] MEDS: Enoxaparin 40 MG/0.4 ML Syringe SC (05:14)
[2020-03-22] MEDS: Propranolol 10 MG Tablet 20 MG PO ×3 (05:14→20:28)
[2020-03-22] MEDS: Memantine Hydrochloride 10 MG Tablet PO (05:15)
[2020-03-22] MEDS: Multivitamins,Ther W-Minerals Tablet 1 TABLET PO (07:49)
[2020-03-22] MEDS: Aspirin 81 MG TAB.CHEW PO (07:49)
[2020-03-22 10:00] VITALS: RESP 16
[2020-03-22 13:18] VITALS: BP 108/68; PULSE 73; RESP 17; TEMP 37.1; O2SAT 94
--- NOTE | 2020-03-22 14:59 | NURSING ---
HEART MONITOR NOW COMPLETE. ALL PARTS IN BOX AND GIVEN TO RN.
[2020-03-22] MEDS: Atorvastatin Calcium 20 MG Tablet PO (20:28)
[2020-03-22] MEDS: Latanoprost 0.005% 1 Bottle 1 DRP EACH EYE (20:29)
[2020-03-23 04:00] VITALS: BP 160/67; PULSE 69; RESP 18; TEMP 36.8; O2SAT 97
[2020-03-23] MEDS: Menthol/Lanolin/Calamine/Znox 113 GM Tube 1 APPLIC TOPICAL (06:03)
[2020-03-23] MEDS: Enoxaparin 40 MG/0.4 ML Syringe SC (06:03)
[2020-03-23] MEDS: Memantine Hydrochloride 10 MG Tablet PO (06:03)
[2020-03-23] MEDS: Propranolol 10 MG Tablet 20 MG PO (06:03)
[2020-03-23] MEDS: Multivitamins,Ther W-Minerals Tablet 1 TABLET PO (07:57)
[2020-03-23] MEDS: Aspirin 81 MG TAB.CHEW PO (07:57)
[2020-03-23 10:42] VITALS: BP 111/60; PULSE 61; RESP 16; TEMP 36.9; O2SAT 97
--- NOTE | 2020-03-23 11:10 | NURSING ---
requesting hard copy of script for lipitor. No script found with discharge instructions. Dr Fox notified and he said he E-scripted it to her pharmacy x2 and had already tried to call them about it a week ago. If there are further issues, she can contact her PCP. will be here around 12:40 to load up patients belongings and then to Dr Wilson appt at 1pm.
== END 2020-03-23 12:45 | disposition home health service (06) | DRG 57 ==
PROVIDERS: Admitting Provider Family Medicine Geriatric Medicine; PCP Internal Medicine; Referring Provider Family Medicine Geriatric Medicine; Visit Provider Family Medicine Geriatric Medicine
DX: I69.351 Hemiplegia and hemiparesis following cerebral infarction affecting right dominant side (principal); I42.9 Cardiomyopathy, unspecified; Z23 Encounter for immunization; I48.20 Chronic atrial fibrillation, unspecified; I69.320 Aphasia following cerebral infarction; F02.80 Dementia in other diseases classified elsewhere, unspecified severity, without behavioral disturbance, psychotic disturbance, mood disturbance, and anxiety; G30.9 Alzheimer's disease, unspecified; J45.909 Unspecified asthma, uncomplicated; E78.5 Hyperlipidemia, unspecified; M13.0 Polyarthritis, unspecified; K21.9 Gastro-esophageal reflux disease without esophagitis; I10 Essential (primary) hypertension; H40.9 Unspecified glaucoma
CPT/HCPCS: 36415; 80048; 81001; 85025; 87077; 87086; 87088; 87186; 87635; 92507; 92523; 92526; 92610; 97110; 97112; 97116; 97162; 97166; 97530; 97535; 97802; G0009; G2023; 90670; U0002; U0004